=== PATIENT | female | born 1955 | race Caucasian/White ===

== ENCOUNTER 2018-03-21 17:09 | Inpatient (IN) | payer OTHER, MEDICAID ==
[~2018-03-21] VITALS: Ht 162.6 cm; Wt 100.7 kg
[2018-03-21 17:09] VITALS: BP 152/69
[~2018-03-21 17:09] MED LIST: ACETAMINOPHEN-1 EAC1; ALBUTEROL2.5 MG/0.5 INH; AMBIEN 5 MG TABL5 M1 PO; AMLODIPINE BESY10 MG PO; ATIVAN1 MG PO; BENTYL 10 MG CA10 M1; BUPROPION HCL200 MG PO; GABAPENTIN 100100 MG; GLUCOTROL5 MG PO; IBUPROFEN 400400 M2; JANUVIA 50 MG T50 M1; JANUVIA 50 MG T50 MG PO; LASIX 20 MG TAB20 MG PO; LEVAQUIN 500 M500 M4 PO; LEVAQUIN 750 M750 MG PO; LIDODERM 5%1 PATC1 TRANSDERM; MAGOX 400400 MG PO; MUCINEX TA600 MG/TA2 PO; NEURONTIN 300300 M1 PO; NICOTINE TRANSD21 M1 TRANSDERM; NORCO 5-325 TA1 EACH PO; ONDANSETRON HCL4 M2 PO; OXYBUTYNIN 5 MG5 M2 PO; PLAVIX 75 MG TA75 M1 PO; POTASSIUM20 PO; PREDNISONE 10 M10 MG PO; PREDNISONE 20 M20 MG PO; PREDNISONE 5 MG5 M1 PO; PROAIR HFA8.5 GM INH; PROTONIX40 M1 PO; PROZAC20 MG PO; RANITIDINE HCL300 MG PO; SPIRIVA INH; SYMBICORT160 MCG/4. INH; SYNTHROID125 MCG PO; TIZANIDINE HCL4 MG PO; TOPAMAX 100 MG100 MG PO; TRAMADOL 50 MG50 MG PO; TRAZODONE HCL50 MG; VISTARIL 25 MG25 M1; ZANTAC 150MG T150 MG PO; ZOCOR20 MG PO
[2018-03-21] MEDS ORDERED: LISINOPRIL5 MG PO (17:27)
[2018-03-21] MEDS ORDERED: MAPAP500 MG PO (17:27)
[2018-03-21] MEDS ORDERED: LOPERAMIDE 2 MG2 M1 PO (17:27)
[2018-03-21] MEDS ORDERED: ACIDOPHILUS1 EAC4 PO ×2 (17:27→20:56)
[2018-03-21 17:51] LABS: ABSOLUTE BASOPHILS 0.1 thou/uL (0.0-0.2); ABSOLUTE EOSINOPHILS 0.2 thou/uL (0.0-0.7); ABSOLUTE LYMPHOCYTES 2.2 thou/uL (0.8-5.3); ABSOLUTE MONOCYTES 0.7 thou/uL (0.0-1.2); ABSOLUTE NEUTROPHILS 3.1 thou/uL (1.6-8.1); BASOPHILS 1.1 %; EOSINOPHILS 3.3 %; HEMATOCRIT 45.5 % (37.0-47.0); HEMOGLOBIN 15.2 gm/dL (12.0-15.0); LYMPHOCYTES 35.6 %; MCH 29.8 pg (26.0-34.0); MCHC 33.4 g/dL (28.0-37.0); MCV 89.4 fL (80.0-100.0); MPV 7.7 fl. (7.2-11.1); NUCLEATED RBCS 0 /100WBC; PLATELET COUNT* 220 thou/uL (150-400); RBC 5.09 mil/uL (4.20-5.00); RDW-CV 14.8 % (10.5-14.5); WBC 6.3 thou/uL (4.0-11.0)
[2018-03-21 17:58] LABS: ANION GAP 8 mmol/L (7-16); BUN 16 mg/dL (7-18); CHLORIDE 106 mmol/L (98-107); CO2 27 mmol/L (21-32); CREATININE 1.1 mg/dL (0.6-1.3); GLUCOSE 127 mg/dL (70-99); POTASSIUM 4.2 mmol/L (3.5-5.1); SODIUM 141 mmol/L (136-145)
[2018-03-21 18:08] LABS: ALBUMIN 3.6 g/dL (3.4-5.0); ALKALINE PHOSPHATASE 99 U/L (46-116); LIPASE 163 U/L (73-393); MAGNESIUM 1.8 mg/dL (1.8-2.4); NT-PRO BRAIN NAT PEPTIDE 114 pg/mL (<300); SGOT 20 U/L (15-37); SGPT 20 U/L (30-65); TOTAL BILIRUBIN 0.2 mg/dL (<0.1-1.0); TOTAL PROTEIN 7.4 g/dL (6.4-8.2); TROPONIN-I LEVEL <0.06 ng/mL (<0.06)
[2018-03-21 18:16] LABS: APTT 24.2 Seconds (25.0-31.3)
[2018-03-21 18:16] LABS: PCO2 VENOUS 42.8 mmHg (41.0-51.0)
[2018-03-21 18:17] LABS: BE -3.1 mmol/L (-2 to +3); HCO3 22.6 mmol/L (22.0-26.0); PO2 VENOUS < 39.9 mmHg (35.0-45.0)
--- NOTE | 2018-03-21 19:23 | NUR ---
REPORT RECIEVED FROM KENDELL, WAITING FOR PATIENT'S ARRIVAL TO FLOOR.
[2018-03-21 19:40] VITALS: BP 149/65
[2018-03-21 19:50] VITALS: BP 133/76
[2018-03-21] MEDS ORDERED: MAPAP500 M1 PO (21:00)
[2018-03-21] MEDS ORDERED: JANUVIA100 MG PO ×2 (21:08→21:09)
[2018-03-22 00:23] VITALS: BP 151/97
[2018-03-22 04:40] VITALS: BP 112/65
--- NOTE | 2018-03-22 07:40 | NUR ---
PATIETN RESTED IN BED, NO ACUTE CHANGES. PATIENT REFUSED SKIN ASSESS OF BUTTOCK BY MALE. PATIENT DID NOT SHOW SIGNS OF DISTRESS. PATIENT IS NOT SOA OF NOW. PATIENT HAD FREQUENT URINE. FALL PRECAUTIONS IN PLACE, CALL LIGHT WITH IN REACH, HOURLY ROUNDING OBSERVED, BED ALARM ON. DOCTOR NOTIFIED OF PATIENT'S BLOOD SUGAR. DOCTOR NOTIFIED OF PATIENT'S REQUEST FOR NIGHT MEDS, LORAZPAM, PAIN MEDS, SEE ORDERS.
[2018-03-22 09:00] VITALS: BP 158/86
--- NOTE | 2018-03-22 10:18 | EKG ---
[place] [address] ELECTROCARDIOGRAM REPORT Name: CHONG MILNER Room: [address] ADM IN [facility].#: [id number] Admission: 03/21/18 Attend Phys: Shahzad Toure Discharge: Date of : 55 Report #: [id number] THIS REPORT FOR: //name// [facility] ED Test Date: 2018-03-21 Test Time: 17:16:16 Pat Name: CHONG MILNER Department: Room: [facility] Gender: F Entertainment & Media Correspondent: Opal ESCAMILLA : 1955 Requested By: Lei Parada Order Number: [id number] MD: Robert Leung Measurements Intervals [place] Rate: 91 P: 54 NV: 171 QRS: -14 QRSD: 93 T: 66 QT: 370 QTc: 456 Interpretive Statements Sinus rhythm poor r wave progression Low voltage, precordial leads Compared to ECG 03/03/2017 04:02:30 no change Electronically Signed On 03-22-2018 10:18:[address] [employer] LAW CLERK by Robert Leung [email or web address] <ELECTRONICALLY SIGNED> By: Robert Leung MD, [facility] 03/22/18 1018 1716 1716 Robert Leung MD, [facility] /EPI
[2018-03-22 12:00] VITALS: BP 147/84
--- NOTE | 2018-03-22 12:49 | 2DMMODE ---
[place] [address] 2 D/M-MODE ECHOCARDIOGRAM Name: ANNIACHONG L Room: [address] IN [facility]#: [id number] Admission: 03/21/18 Attend Phys: Emmanuel Webb Discharge: Date of : 55 Date of Service: 03/22/18 1249 Report #: [id number] THIS REPORT FOR: //name// APPROVED REPORT Study performed: 03/22/2018 10:38:35 EXAM: Comprehensive 2D, Doppler, and color-flow Echocardiogram Patient Location: In-Patient Room #: [facility] Status: routine BSA: 2.03 HR: 102 bpm BP: 158/86 mmHg Rhythm: NSR Other Information Study Quality: Adequate Indications Dyspnea 2D Dimensions IVSd: 13.11 (7-11mm) LVOT Diam: 19.12 (18-24mm) LVDd: 41.11 mm PWd: 13.02 (7-11mm) Ascending Ao: 30.19 (22-36mm) LVDs: 22.84 (25-40mm) Aortic Root: 29.24 mm Volumes Left Atrial Volume (Systole) LA ESV Index: 27.00 mL/m2 Aortic Valve AoV Peak Norberto.: 1.66 m/s AO Peak Gr.: 11.05 mmHg LVOT Max P.19 mmHg AO Mean Gr.: 6.75 mmHg LVOT Mean P.76 mmHg LVOT Max V: 1.52 m/s AO V2 VTI: 30.89 cm LVOT Mean V: 1.01 m/s SHELLY (VTI): 2.79 cm2 LVOT V1 VTI: 30.03 cm Mitral Valve MV Mean Gr.: 5.77 [place] [address] 2 D/M-MODE ECHOCARDIOGRAM Name: CHONG MILNER Room: [address] IN .R.#: [id number] Admission: 03/21/18 Attend Phys: Emmanuel Webb Discharge: Date of : 55 Date of Service: 03/22/18 1249 Report #: [id number] Lateral E' Norberto.: 0.12 m/s Pulmonary Valve PV Peak Norberto.: 1.13 m/s PV Peak Gr.: 5.11 mmHg Left Ventricle The left ventricle is normal size. There is normal LV segmental wall motion. Mild concentric left ventricular hypertrophy. Left ventricular systolic function is normal. The left ventricular ejection fraction is within the normal range. LVEF is 60-65%. The left ventricular diastolic function is normal. Right Ventricle The right ventricle is normal size. The right ventricular systolic function is normal. Atria The left atrium size is normal. The right atrium size is normal. Aortic Valve The aortic valve is normal in structure. No aortic regurgitation is present. There is no aortic valvular stenosis. Mitral Valve Moderate mitral annular calcification. There is no mitral valve regurgitation noted. No evidence of mitral valve stenosis. Tricuspid Valve The tricuspid valve is normal in structure. There is no tricuspid valve regurgitation noted. Pulmonic Valve The pulmonary valve is normal in structure. There is no pulmonic valvular regurgitation. Great Vessels The aortic root is normal in size. IVC is normal in size and collapses >50% with inspiration. Pericardium There is no pericardial effusion. <Conclusion> [place] [address] 2 D/M-MODE ECHOCARDIOGRAM Name: CHONG MILNER Room: [address] IN .R.#: [id number] Admission: 03/21/18 Attend Phys: Emmanuel Webb Discharge: Date of : 55 Date of Service: 03/22/18 1249 Report #: [id number] Mild concentric left ventricular hypertrophy. LVEF is 60-65%. <ELECTRONICALLY SIGNED> By: Robert Leung MD, [facility] 03/22/18 1249 1249 1249 Robert Leung MD, [facility] /INF
--- NOTE | 2018-03-22 12:52 | NUR ---
Pt was sound asleep when CM went to assess, will f/u later
--- NOTE | 2018-03-22 15:37 | NUR ---
Pt is A&O. Resides at home alone. Pt has CJ caregiver, through [facility], on Tuesdays, Wednesdays and for 4 hrs/day. Caregiver completes cleaning, prepares lunch, runs errands and provides stand by assist when Pt exits the shower, as needed. Pt has a RN through [facility] that comes once/week to set up Pt's medications. Pt reports having no family support, but states that she has 2 friends that are available to assist as needed. Pt has a walker, RW and home o2 through [employer]. Pt wants to see if she qualifies for a new RW, stated that her current one is not working anymore. Pt states that she does not have a bed and stated that she normally sleeps on her sofa, Pt questioned if she would qualify for a hospital bed. CM explained the necessary criteria that would need to be documented, updated Dr. Bill of skilled at [facility] and [facility]. Pt was denied a trilogy after a hospital stay in 03/2017. CM discussed disposition, Pt hopes to be able to return home at hi. Therapies to be ordered. Cm to try and find out when Pt received her RW, to determine if she is eligible for a new one. Following.
[2018-03-22 16:00] VITALS: BP 122/76
--- NOTE | 2018-03-22 18:26 | NUR ---
ASSUMED PT CARE AT 0700 PT IS ALERT AND ORIENTED X 4 PT C.O PAIN PT GIVEN PAIN MEDS WHICH HELPED, PT DENIES SOA ON 2L/NC, PT IS UP WITH SBA PT IS A FALL RISK BED ALARM IS ON, PT CALLS OUT APPROPRIATELY, PT IS ST ON THE MONITOR, PT IS PROGRESSING TOWARDS GOALS, PT HOME MEDS SENT TO PHARMACY BY PREVIOUS NURSE, WILL CONTINUE TO MONITOR
[2018-03-22 19:50] VITALS: BP 152/89
[2018-03-23] VITALS: BP 168/90
--- NOTE | 2018-03-23 02:18 | NUR ---
RECIEVED REPORT AND ASSUMED CARE AT 1900. DOOR OPENER IN PLACE. VITAL SIGNS STABLE. STANDBY ASSIST X 1 TO COMMODE, BED AND CHAIR. PT HAS KNEE PAIN AND LEFT HIP PAIN AND PAIN MEDS GIVEN ORDERED. ASSESSMENT COMPLETED AND DISCUSSED PLAN OF CARE, PT UNDERSTANDS. BED LOCKED AND CALL LIGHT WITHIN REACH. FALL PRECAUTIONS IN PLACE. HOURLY ROUNDING DONE AND ALL NEEDS MET. NURSING WILL CONTINUE TO MONITOR.
[2018-03-23 04:00] VITALS: BP 114/63
[2018-03-23 08:30] VITALS: BP 159/94
[2018-03-23 11:37] VITALS: BP 113/77
[2018-03-23 16:06] VITALS: BP 113/65
--- NOTE | 2018-03-23 16:39 | NUR ---
ASSUMED PT CARE AT 0700 PT IS ALERT AND ORIENTED X 4 PT DENIES PAIN OR SOA ON 2L/NC, PT IS UP WITH SBA PT IS A FALL RISK BED ALARM IS ON, PT IS ST ON THE MONITOR, PT IS PROGRESSING TOWARDS GOALS, PT AROUND 1630 C/O SOA WHEN AMBULATING CHECKED O2 SAT AND INCRESAED OXYGEN TO 3L/NC PT O2 SAT IS ABOVE 90, PT IS ANXIOUS GAVE ANXIETY MEDS THIS AM PT IS DROWSY AND HAS SLEPT SOME THROUGH OUT SHIFT PHYSICAL THERAPY EVAULUATING PT WILL CONTINUE TO MONITOR
[2018-03-23 19:45] VITALS: BP 110/57
[2018-03-24 00:12] VITALS: BP 153/80
[2018-03-24 05:01] LABS: ABSOLUTE BASOPHILS 0.1 thou/uL (0.0-0.2); ABSOLUTE EOSINOPHILS 0.1 thou/uL (0.0-0.7); ABSOLUTE LYMPHOCYTES 2.4 thou/uL (0.8-5.3); ABSOLUTE NEUTROPHILS 6.2 thou/uL (1.6-8.1); BASOPHILS 0.8 %; EOSINOPHILS 0.6 %; HEMATOCRIT 45.3 % (37.0-47.0); HEMOGLOBIN 14.9 gm/dL (12.0-15.0); LYMPHOCYTES 24.7 %; MCHC 32.9 g/dL (28.0-37.0); MCV 91.3 fL (80.0-100.0); MONOCYTES 10.2 %; MPV 8.1 fl. (7.2-11.1); NUCLEATED RBCS 0 /100WBC; POLYS 63.7 %; RBC 4.96 mil/uL (4.20-5.00); RDW-CV 14.9 % (10.5-14.5); WBC 9.7 thou/uL (4.0-11.0)
[2018-03-24 05:08] VITALS: BP 153/84
[2018-03-24 05:11] LABS: PLATELET COUNT* 143 thou/uL (150-400)
--- NOTE | 2018-03-24 06:22 | NUR ---
PT ALERT ORIENTED. INITALLY PT GETTING UP WITHOUT ASSIST. PT UNSTEADY AND TOLD TO CALL FOR HELP. BED ALARM ON. CO PAIN IN KNEE. ICY HOT ORDERED AND PLACED ON KNEE. TELEMETRY SHOWS SR. O2 AT 3 LITERS NC. HS ACCUCHECK 196 INSULIN GIVEN.
[2018-03-24 07:55] VITALS: BP 119/66
[2018-03-24 09:51] LABS: CALCIUM 9.3 mg/dL (8.5-10.1); CREATININE 0.9 mg/dL (0.6-1.3); POTASSIUM 4.1 mmol/L (3.5-5.1)
--- NOTE | 2018-03-24 10:34 | NUR ---
RECEIVED REPORT FROM JONAH AND ASSUMED CARE PT @ 7314.PT IS A/O X4 BUT DROWSY.VSS.TRACING SR ON THE MONITOR.IV RIGHT FOREARM REMOVED DUE TO INFILTRATION.PT IS CALM AND COOPERATIVE WITH C/O PAIN IN KNEES AND THIGHS-MEDICATIONS GIVEN.PT IS UP WITH ASSIST OF ONE TO BSC.PT LEFT RESTING IN BED WITH CALL LIGHT AND FALL PRECAUTIONS IN PLACE.WILL CONTINUE TO MONITOR.
[2018-03-24 12:04] VITALS: BP 144/75
[2018-03-24] MEDS ORDERED: LEVAQUIN 750 M750 MG PO (13:42)
[2018-03-24] MEDS ORDERED: PREDNISONE 20 M20 MG PO (13:44)
[2018-03-24] MEDS ORDERED: LOPERAMIDE 2 MG2 M1 PO (13:44)
--- NOTE | 2018-03-24 14:04 | NUR ---
EQUIPMENT OILER SPOKE TO THE PATIENT TO DISCUSS DISCHARGE PLANNING NEEDS AND HH AT D/C. PATIENT INFORMS THAT SHE HAS CAREGIVERS THRU [facility] AND INFORMS THAT SHE WOULD LIKE THE HH SETUP WITH [facility]. D/C FLUE TILE PRESS OPERATOR SPOKE TO INTAKE WITH [facility] TO INFROM OF THE REFERRAL AND FAXED THE PATIENT'S FACESHEET, H&P, AND D/C ORDERS. [facility] WILL CONTACT THE PATIENT TO ARRANGE A TIME TO VISIT. CM WILL REMAIN AVAILABLE TO ASSIST AND FOLLOW NEEDED
[2018-03-24 14:28] VITALS: BP 144/75
[2018-03-24 14:30] VITALS: BP 144/75
--- NOTE | 2018-03-24 15:00 | NUR ---
PT OK TO D/C.PAPERWORK COMPLETED AND GIVEN TO PT.SCRIPTS GIVEN WITH EDUCATION.IV REMOVED EARLIER IN THE SHIFT.HEART MONITOR REMOVED AND RETURNED TO NURSING STATION.CAB VOUCHER SET UP BY CASE MANAGEMENT.ALL PERSONAL BELONGINGS PACKED AND TAKEN WITH PT.PT WHEELED OUT BY NURSING STAFF TO CAB BY NURSING STAFF.
== END 2018-03-24 18:21 | disposition home or self-care (01) | DRG 871 ==
LOC: M.ERS 17:09 → M.2W 18:03 → M.TBA-ER 18:03 → M.2W 20:09
PROVIDERS: Family Medicine; ADMIT Internal Medicine
DX: A41.9 Sepsis, unspecified organism (principal); I50.33 Acute on chronic diastolic (congestive) heart failure; J96.21 Acute and chronic respiratory failure with hypoxia; J44.1 Chronic obstructive pulmonary disease with (acute) exacerbation; I13.0 Hypertensive heart and chronic kidney disease with heart failure and stage 1 through stage 4 chronic kidney disease, or unspecified chronic kidney disease; F17.210 Nicotine dependence, cigarettes, uncomplicated; N18.3 Chronic kidney disease, stage 3 (moderate); E11.22 Type 2 diabetes mellitus with diabetic chronic kidney disease; J06.9 Acute upper respiratory infection, unspecified; E78.00 Pure hypercholesterolemia, unspecified; J45.909 Unspecified asthma, uncomplicated; F31.9 Bipolar disorder, unspecified; Z88.8 Allergy status to other drugs, medicaments and biological substances; Z90.49 Acquired absence of other specified parts of digestive tract; Z90.710 Acquired absence of both cervix and uterus; Z88.1 Allergy status to other antibiotic agents

== ENCOUNTER 2018-04-05 14:02 | Inpatient (IN) | payer OTHER, MEDICAID ==
[~2018-04-05] VITALS: Ht 152.4 cm; Wt 104.8 kg
--- NOTE | ~2018-04-05 | EKG ---
[place] [address] ELECTROCARDIOGRAM REPORT Name: CHONG MILNER Room: [address] IN [facility]#: [id number] Admission: 04/05/18 Attend Phys: Jm Webster MD Discharge: 04/20/18 Date of : 55 Report #: [id number] THIS REPORT FOR: //name// [facility] ED Test Date: 2018-04-21 Test Time: 17:46:56 Pat Name: CHONG MILNER Department: Room: [facility] Gender: F Fusing Machine Feeder: [place] : 1955 Requested By: Micky Escobar Order Number: [id number] MD: Measurements Intervals [place] Rate: 83 P: 49 OK: 161 QRS: 18 QRSD: 92 T: 58 QT: 371 QTc: 436 Interpretive Statements Sinus rhythm Probable left atrial enlargement Compared to ECG 04/12/2018 12:52:33 Poor R-wave progression no longer present Early repolarization no longer present [email or web address] By: 1746 1746 Epiphany Ep[facility]any, /EPI
[~2018-04-05 14:02] MED LIST changes: +ACIDOPHILUS1 EAC4 PO; +JANUVIA100 MG PO; +LISINOPRIL5 MG PO; +LOPERAMIDE 2 MG2 M1 PO; +MAPAP500 M1 PO; +MAPAP500 MG PO
[2018-04-05] MEDS ORDERED: ATIVAN1 MG PO (14:06)
[2018-04-05 14:09] VITALS: BP 136/60
[2018-04-05 14:30] LABS: ABSOLUTE BASOPHILS 0.1 thou/uL (0.0-0.2); ABSOLUTE EOSINOPHILS 0.1 thou/uL (0.0-0.7); ABSOLUTE LYMPHOCYTES 1.3 thou/uL (0.8-5.3); ABSOLUTE MONOCYTES 0.6 thou/uL (0.0-1.2); ABSOLUTE NEUTROPHILS 4.8 thou/uL (1.6-8.1); BASOPHILS 0.8 %; EOSINOPHILS 1.4 %; HEMATOCRIT 43.5 % (37.0-47.0); HEMOGLOBIN 14.8 gm/dL (12.0-15.0); LYMPHOCYTES 18.5 %; MCHC 33.9 g/dL (28.0-37.0); MCV 88.4 fL (80.0-100.0); MONOCYTES 8.6 %; MPV 7.4 fl. (7.2-11.1); NUCLEATED RBCS 0 /100WBC; PLATELET COUNT* 231 thou/uL (150-400); POLYS 70.7 %; RBC 4.92 mil/uL (4.20-5.00); RDW-CV 14.7 % (10.5-14.5); WBC 6.8 thou/uL (4.0-11.0)
[2018-04-05 14:39] LABS: ANION GAP 9 mmol/L (7-16); BUN 12 mg/dL (7-18); CALCIUM 8.9 mg/dL (8.5-10.1); CHLORIDE 104 mmol/L (98-107); CO2 25 mmol/L (21-32); CREATININE 0.9 mg/dL (0.6-1.3); GLUCOSE 127 mg/dL (70-99); SODIUM 138 mmol/L (136-145)
[2018-04-05 14:47] LABS: ALBUMIN 3.4 g/dL (3.4-5.0); ALKALINE PHOSPHATASE 100 U/L (46-116); LIPASE 131 U/L (73-393); MAGNESIUM 1.9 mg/dL (1.8-2.4); NT-PRO BRAIN NAT PEPTIDE 116 pg/mL (<300); SGOT 14 U/L (15-37); SGPT 17 U/L (30-65); TOTAL BILIRUBIN 0.2 mg/dL (<0.1-1.0); TOTAL PROTEIN 7.1 g/dL (6.4-8.2); TROPONIN-I LEVEL <0.06 ng/mL (<0.06)
--- NOTE | 2018-04-05 16:52 | EKG ---
[place] [address] ELECTROCARDIOGRAM REPORT Name: CHONG MILNER Room: [facility]#: [id number] Admission: 04/05/18 Attend Phys: Discharge: Date of : 55 Report #: [id number] THIS REPORT FOR: //name// [facility] ED Test Date: 2018-04-05 Test Time: 14:55:49 Pat Name: CHONG MILNER Department: Room: Gender: F Doubler Helper: LAURA : 1955 Requested By: Ehsan Pisano Order Number: [id number] MD: Gael Lozano Measurements Intervals [place] Rate: 104 P: 51 NH: 186 QRS: -14 QRSD: 91 T: 27 QT: 349 QTc: 459 Interpretive Statements Sinus tachycardia Inferior infarct, old Anterior infarct, old Compared to ECG 03/21/2018 17:16:16 Myocardial infarct finding now present Sinus rhythm no longer present Poor R-wave progression no longer present Electronically Signed On 04-05-2018 16:51:58 COMPUTER SERVICE TECHNICIAN by Gael Lozano [email or web address] <ELECTRONICALLY SIGNED> By: Gael Lozano MD, [facility] 04/05/18 1651 1455 1455 Gael Lozano MD, [facility] /EPI
[2018-04-05 19:32] LABS: BE -3.9 mmol/L (-2 to +3); HCO3 22.1 mmol/L (22.0-26.0); PCO2 43.7 mmHg (35.0-45.0); pH 7.322 (7.340-7.450)
[2018-04-05 19:34] LABS: PO2 53.9 mmHg (75.0-100.0)
[2018-04-05 20:20] VITALS: BP 120/81
[2018-04-05 21:00] VITALS: BP 119/64
[2018-04-06] VITALS: BP 104/61
--- NOTE | 2018-04-06 03:02 | NUR ---
PT ARRIVED FROM ER AROUND 2029. ASSESSMENT COMPLETED CHARTED. ABLE TO MAKE NEEDS KNOWN. C/O LEG AND BACK PAIN, GAVE PRN TYLENOL. UP WITH 1 ASSIST TO BSC. PT O2 DROPPED TO 83% WHILE COUGHING AND ON 6LNC, PUT PT ON REBREATHER AT 15L AND PT O2 HAS BEEN STAYING AROUND 95-96%. PT HAS BEEN NEEDY, BUT PLEASENT TO STAFF. PAPERWORK SIGNED. WILL CONTINUE TO MONITOR.
[2018-04-06 04:00] VITALS: BP 117/56
--- NOTE | 2018-04-06 07:30 | NUR ---
ASSUMED CARE OF PT ASSESSED AND DOCUMENTED. PT IS ON CARDIAC MONITER TRACING ST PVC'S HR 107. PT IS A&O WITH NO C/O PAIN. VSS WNL. PT IS AFEBRILE. PT IS ON HIGH FLOW NC AT 10L. LUNGS ARE COARSE. BED IS IN LOW POSTION CALL LIGHT IS IN REACH. WM.
[2018-04-06 08:00] VITALS: BP 115/61
--- NOTE | 2018-04-06 10:31 | EKG ---
[place] [address] ELECTROCARDIOGRAM REPORT Name: CHONG MILNER Room: [address] ADM IN [facility].#: [id number] Admission: 04/05/18 Attend Phys: Jm Webster MD Discharge: Date of : 55 Report #: [id number] THIS REPORT FOR: //name// [facility] ED Test Date: 2018-04-05 Test Time: 16:16:57 Pat Name: CHONG MILNER Department: Room: [facility] Gender: F Netbackup Engineer: LAURA : 1955 Requested By: Ehsan Pisano Order Number: [id number] MD: Robert Leung Measurements Intervals [place] Rate: 106 P: 50 GA: 173 QRS: -11 QRSD: 86 T: 28 QT: 342 QTc: 455 Interpretive Statements Sinus tachycardia Anterior infarct, old Compared to ECG 04/05/2018 14:55:49 No significant changes Electronically Signed On 04-06-2018 10:31:24 DIVISIONAL HUMAN RESOURCES DIRECTOR by Robert Leung [email or web address] <ELECTRONICALLY SIGNED> By: Robert Leung MD, [facility] 04/06/18 1031 15 15 Robert Leung MD, [facility] /EPI
--- NOTE | 2018-04-06 10:45 | NUR ---
Nutrition: Pt with h/o DM, CHF, CKD III, HTN, COPD. Wt: 230# last year, currently 244#. On Heart Healthy diet with a CHO count. Albumin 3.4, BG 265-127. Admitted with PNA. On 6LNC. Consult received for poor po intake. Please encourage good meal intake. RD will order Glucerna for added nutirtion. Mild risk at this time.
[2018-04-06 11:54] VITALS: BP 143/89
--- NOTE | 2018-04-06 13:22 | NUR ---
CALLED PHARMACY SPOKE WITH MYRNA HE IS PUSHING BACK [facility] TROUGH GO AHEAD AND HANG 1400 VANCO.
--- NOTE | 2018-04-06 14:29 | NUR ---
Pt is A&O. Known to this CM from previous hospital stay. Pt resides at home alone, has supportive friends. Pt has a walker, RW and home o2 through [facility]. Current with [facility]. Pt has inhome CGs through [facility] that assist with errands and cleaning. Pt's goal is to return home at pr. Following.
[2018-04-06 16:00] VITALS: BP 112/64
--- NOTE | 2018-04-06 18:08 | NUR ---
PT HAS RESTED AND WATCHED TV THIS SHIFT. SHE IS FORGETFUL AND USES CALL LIGHT EXCESSIVELY. PT HAS HAD NO S OR SX OF ADVERSE REACTION TO ABT. HER LUNGS REMAIN COARSE. SHE IS NOT COMPLIANT WITH LEAVING HER HI FLOW NC ON. SHE IS INCONTINENT AT TIMES. EDUCATION GIVEN ON DEMAND. HOURLY ROUNDING COMPLETE.
[2018-04-06 20:00] VITALS: BP 121/52
[2018-04-07] VITALS: BP 115/57
--- NOTE | 2018-04-07 02:59 | NUR ---
ASSUMED PT CARE AT 1930. ASSESSMENT COMPLETED CHARTED. PT ON O2 TO KEEP SATS ABOVE 90, C/O PAIN IN LEGS AND HEADACHE. UP WITH STANDBY ASSIST, PT RESTING IN BED AT THIS TIME. ABLE TO MAKE NEEDS KNOWN. CALL LIGHT WITHIN REACH. WILL CONTINUE TO MONITOR.
[2018-04-07 04:00] VITALS: BP 135/63
[2018-04-07 05:20] LABS: HEMOGLOBIN 12.9 gm/dL (12.0-15.0); MCH 29.8 pg (26.0-34.0); MCV 90.3 fL (80.0-100.0); MPV 7.5 fl. (7.2-11.1); RBC 4.32 mil/uL (4.20-5.00); RDW-CV 14.9 % (10.5-14.5)
[2018-04-07 05:33] LABS: CALCIUM 9.1 mg/dL (8.5-10.1); CREATININE 0.9 mg/dL (0.6-1.3); MAGNESIUM 1.7 mg/dL (1.8-2.4); POTASSIUM 4.9 mmol/L (3.5-5.1)
[2018-04-07 12:00] VITALS: BP 107/47
[2018-04-07 16:00] VITALS: BP 107/62
--- NOTE | 2018-04-07 17:52 | NUR ---
PER RT DR PARKER STATES THAT PT IS NOT A CO2 RETAINER AND TO USE WHATEVER OXYGEN IS NEEDED TO KEEP PT SAT UP. PT ON NC AND INTERMITTENTLY NRB WELL
[2018-04-07 20:00] VITALS: BP 134/79
[2018-04-08] VITALS: BP 121/75
[2018-04-08 04:00] VITALS: BP 137/70
--- NOTE | 2018-04-08 05:14 | NUR ---
assumed care of pt at 1900 pt alert and oriented x4 vs and assessment stable pts o2 sat 92-95 on 8l nc and pt continues to run st on the monitor. pt did have desats when she removed her o2. reminded pt that she needed to keep o2 on. pt up to void numerous times overnight. pt had tramadol x 1 for pain with good effect. no further complaints. will continue plan of care.
[2018-04-08 05:55] LABS: BE 2.4 mmol/L (-2 to +3); PO2 77.1 mmHg (75.0-100.0); pH 7.358 (7.340-7.450)
[2018-04-08 05:58] LABS: PCO2 52.8 mmHg (35.0-45.0)
[2018-04-08 07:45] VITALS: BP 144/77
[2018-04-08 12:25] VITALS: BP 127/72
[2018-04-08 16:12] VITALS: BP 109/65
--- NOTE | 2018-04-08 18:34 | NUR ---
PT NOT PROGRESSING TOWARD GOALS. PT DESAT WITH ACTIVITY. CURRENTLY ON NON-REBREATHER. O2 SAT CURRENTLY AT 94%. PT HAS A REBOLLAR TO ASSIST WITH I&O'S AND IMMOBILIZATION. PT DC'D IV. NARA ATTEMPTING TO PLACE A NEW IV. WHEN PT IS OFF OF NON-REBREATHER, SHE IS ON HIGHFLO NC AT 8L
[2018-04-08 20:00] VITALS: BP 115/60
[2018-04-09] VITALS (7 sets, daily range): BP systolic 95–146; BP diastolic 38–82
--- NOTE | 2018-04-09 07:06 | NUR ---
ASSUMED PT CARE AT 1930. ASSESSMENT COMPLETED CHARTED. PT ON BEDREST WITH KETURAH IN PLACE. C/O LEG PAIN AND GAVE PRN PAIN MEDS PER P.O. O2 ON AT 10L. COUGHING STILL MAKING PT DESAT. PT RESTING IN BED AT THIS TIME. WILL CONTINUE TO MONITOR.
--- NOTE | 2018-04-09 07:43 | CON ---
[address] [address] CONSULTATION Name: CHONG MILNER Room: [address] IN .R.#: [id number] Admission: 04/05/18 Attend Phys: Jm Webster MD Discharge: Date of : 55 Report #: [id number] THIS REPORT FOR: //name// CC: Jm Ford DATE OF SERVICE: 04/06/2018 LOCATION: She is located in room 207. ATTENDING PHYSICIAN: Dr. Webster. PRIMARY CARE PHYSICIAN: Sheryl Ford DO. 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 INDICATION FOR CONSULTATION: COPD, hypoxemia, possible pulmonary emboli. HISTORY OF PRESENT ILLNESS: The patient is a 62-year-old female, prior smoker, with severe COPD. She has been oxygen dependent, not steroid dependent for COPD. She has a home health physician come by and every 3-6 months comes to her home and treats her with some antibiotics and maybe some breathing treatments. She has not been on any prednisone tapers for the last couple of months. She was seen in the hospital. She was hypoxic on 100% nonrebreather when she had been on 2 liters at home. Had a CT angio of the chest that showed pulmonary emboli in the left lower lobe branches and couple in the left upper lobe branches. Venous Dopplers ended up being negative. The patient was placed on Xarelto 15 mg b.i.d., seems to be breathing better. She was on 100% nonrebreather. She is now down to 7 liters. She was on 2 liters at home. She is chronically short of breath when she walks across the room. PAST MEDICAL HISTORY: She has a history of COPD, possibly mixed with some interstitial lung disease. She has had some old left rib fractures and multiple contusions, pulmonary embolism. ALLERGIES: SHE HAS ALLERGIES OR INTOLERANCES TO AMOXICILLIN, WHICH GIVES HER RASH AND ALSO CAMPHOR, WHICH ALSO GIVES HER A RASH. OUTPATIENT MEDICATIONS: She was on a prednisone taper again a couple of weeks ago and then, she was on levofloxacin 750 mg daily. It appears she was on that from 03/24/2018 to 03/31/2018. Other outpatient medications included DuoNeb nebulizers 4 times a day, lisinopril 5 mg daily, clopidogrel bisulfate, Plavix 75 mg daily, fluoxetine, Prozac 20 mg daily, Topamax 100 mg daily, levothyroxine 125 mcg daily, Protonix 40 mg b.i.d., lorazepam 1 mg p.r.n., topiramate, Lasix was 20 mg daily. In the hospital, she is on IV Solu-Medrol and she is on Xarelto 15 mg b.i.d., [place] [address] CONSULTATION Name: CHONG MILNER Room: [address] IN [facility].#: [id number] Admission: 04/05/18 Attend Phys: Jm Webster MD Discharge: Date of : 55 Report #: [id number] PAST SURGICAL HISTORY: Includes a hysterectomy in the past, cholecystectomy, tonsillectomy, right knee arthroscopy. REVIEW OF SYSTEMS: Otherwise shows hyperlipidemia and some borderline schizophrenia and possibly some early chronic kidney disease. FAMILY HISTORY: Negative for premature cardiopulmonary disease. SOCIAL HISTORY: The patient lives at home by herself, current every day smoker about 1/2-1 pack a day, and she has a 77-[id number] history of smoking. Denies any alcohol or illicit drug use. PHYSICAL EXAMINATION: GENERAL: A 62-year-old female, in no acute distress. She is mildly dyspneic getting up and sitting up in the chair. VITAL SIGNS: Blood pressure was 108/64, heart rate is 96-100, respirations were 16-20 and she was afebrile at 36.8. She is 5 feet 2 inches tall, weight is 108 kilograms or 230 pounds, BMI is 46. HEENT: She has a crowded mouth. Mallampati score of 3-4. NECK: Supple, without nodes. She has thick redundant neck tissue. CHEST: Shows inspiratory and expiratory wheezes with prolonged expiratory phase. CARDIOVASCULAR: Regular rate and rhythm without murmur, gallop or rub. Heart rate is 104. ABDOMEN: Obese without masses or megaly. EXTREMITIES: Trace edema. No calf tenderness. No cyanosis, no clubbing. NEUROLOGIC: Intact. LABORATORY DATA: From 04/05/2018 shows hemoglobin 15, white count 6800, platelets are 231,000, normal differential. Sodium is 137, potassium is 4.9, BUN is 19, creatinine 0.9, glucose is 217. Magnesium is 1.7 and ABGs on 04/05/2018 on 3 liters showed a pO2 of 54, pH 7.32, pCO2 is 44, bicarbonate 22, sats 85%. Carboxyhemoglobin markedly elevated at 4.7%. Chest x-ray shows COPD, hyperinflation, lower lobe infiltrates, linear atelectasis. CT angio of the chest showed some left lower lobe clots, they were subsegmental. No masses or adenopathy is noted. ASSESSMENT: 1. Acute hypoxic respiratory failure related to cigarette use and carboxyhemoglobinemia, clinically improving. 2. Severe chronic obstructive pulmonary disease, oxygen dependent, may be becoming steroid dependent. 3. Subsegmental pulmonary emboli with no pulmonary artery hypertension or right heart strain, clinically on Xarelto therapy. 4. [place] [address] CONSULTATION Name: CHONG MILNER Room: [address] IN [facility].#: [id number] Admission: 04/05/18 Attend Phys: Jm Webster MD Discharge: Date of : 55 Report #: [id number] PLAN: Continue current therapy. We will see if we can wean her O2 from the 7 liters on down. Intermittently, she becomes hypoxic. She does get very anxious and she may need a sleep study and full PFTs at some point in time. She will probably need 6 months of therapy, then check a CT angio of the chest. Venous Dopplers just came back, which were negative for deep venous thrombosis. May need an echocardiogram at some point in time. We will see how she clinically does. She seems to be clinically improving. Again, also obviously encouraged the patient to discontinue smoking or she will from cigarette smoking related lung and/or heart disease. She states she will try and do this. This has been a 33 minute critical care consult. <ELECTRONICALLY SIGNED> By: Jermaine Christian MD 04/09/18 0743 1813 1855AMD michell Bravo
--- NOTE | 2018-04-09 10:02 | NUR ---
RECEIVED REPORT FROM ALEXANDRU AND ASSUMED CARE OF PT @ 9769.PT IS A/O X4 BUT FORGETFUL,VSS,TRACING ST ON THE MONITOR.PT REMAINS ON 10L O2 HIGH FLOW NC AND INTERMITTENT NON-REBREATHER USE.CONTINUOUS PULSE OXIMETRY SECURE IN PLACE.IV PATENT AND SALINE LOCKED. IV ANTIBIOTICS GIVEN.REBOLLAR SECURE AND PATENT.PT IS CALM AND COOPERATIVE WITH NO C/O PAIN AT TIME OF ASSESSMENT. PT LEFT RESTING IN BED WITH CALL LIGHT AND FALL PRECAUTIONS IN PLACE.WILL CONTINUE TO MONITOR.
--- NOTE | 2018-04-09 17:13 | NUR ---
VSS.CARDIAC MONITORING IN PLACE WITH NO CHANGES.PT REMAINS ON 10L O2 NC AND CONTINUOUS PULSE OX.NEW IV INSERTED IN LEFT FOREARM.IV PATENT AND SALINE LOCKED.IV ANTIBIOTICS GIVEN.PAIN MANAGED WELL WITH PO MEDICATIONS.PT HAS SLEPT MOST OF SHIFT.HOURLY ROUNDING COMPLETED FOR PT SAFETY.CALL LIGHT AND FALL PRECAUTIONS IN PLACE.Q2 HOUR POSITION CHANGE COMPLETED.WILL CONTINUE TO MONITOR FOR DURATION OF SHIFT.
[2018-04-10 04:00] VITALS: BP 124/87
--- NOTE | 2018-04-10 06:09 | NUR ---
ASSUMED PT CARE AT 1930. ASSESSMENT COMPLETED CHARTED. ABLE TO MAKE NEEDS KNOWN. BEDREST, Q2TURN, ON HFNC AT 10-12 L ALL NIGHT. C/O LEG PAIN AND GAVE PRN PAIN MEDS. PT STATES SHE IS LONELY AT TIMES AND WANTS ATTENTION. AND PT STATES SHE IS FEELING BETTER TODAY. WILL CONTINUE TO MONITOR.
[2018-04-10 07:45] VITALS: BP 125/71
--- NOTE | 2018-04-10 07:45 | NUR ---
RECEIVED REPORT FROM ALEXANDRU AND ASSUMED CARE OF PT @ 2346.PT IS A/O X4,VSS,TRACING SR-ST ON THE MONITOR.NEW IV INSERTED IN RIGHT WRIST-PATENT AND SALINE LOCKED.IV ANTIBIOTICS GIVEN.REBOLLAR SECURE AND PATENT.PT IS CALM AND COOPERATIVE WITH NO C/O PAIN AT TIME OF ASSESSMENT.PT LEFT RESTING IN BED WITH CALL LIGHT AND FALL PRECAUTIONS IN PLACE.WILL CONTINUE TO MONITOR.
[2018-04-10 12:09] VITALS: BP 136/77
[2018-04-10 15:30] VITALS: BP 110/68
--- NOTE | 2018-04-10 17:19 | NUR ---
VSS.CARDIAC MONITORING IN PLACE WITH NO CHANGES.PT O2 TITRATED DOWN TO 8L O2 HIGH FLOW NC.NO C/O PAIN.IV PATENT AND SALINE LOCKED.REBOLLAR SECURE AND PATENT.Q2 HOUR POSITION CHANGE COMPLETED.PT INFORMED OF PLAN OF CARE AND COMMUNICATES UNDERSTANDING.HOURLY ROUNDING COMPLETED FOR PT SAFETY.CALL LIGHT AND FALL PRECAUTIONS IN PLACE.WILL CONTINUE TO MONITOR FOR DURATION OF SHIFT.
[2018-04-10 20:30] VITALS: BP 124/75
[2018-04-11 00:44] VITALS: BP 126/77
[2018-04-11 04:00] VITALS: BP 114/75
--- NOTE | 2018-04-11 04:47 | NUR ---
PT CARE ASSUMED AT 1930. SAT MAINTAINED IN 8-10L HFNC. ALERT AND ORIENTED X4. BED IN LOW POSITION AND CALL LIGHT WITHIN REACH. PT C/O PAIN, MEDICATION GIVEN PER EMAR. PT SAID FEELING BETTER THAN YESTERDAY. HOURLY ROUNDING DONE FOR PT SAFETY.
[2018-04-11 07:55] VITALS: BP 126/81
[2018-04-11 10:15] LABS: BE 0.8 mmol/L (-2 to +3); HCO3 29.3 mmol/L (22.0-26.0); PO2 70.9 mmHg (75.0-100.0)
[2018-04-11 10:17] LABS: pH 7.282 (7.340-7.450)
[2018-04-11 10:18] LABS: PCO2 63.6 mmHg (35.0-45.0)
--- NOTE | 2018-04-11 10:39 | NUR ---
RECEIVED REPORT FROM RAMO AND ASSUMED CARE OF PT @ 8884.PT IS A/O X4,VSS,TRACING SR ON THE MONITOR.PT REMAINS ON 7.5L O2 HIGH FLOW NC.PT INTIATED ON BIPAP PER ORDERS AND ABG RESULTS.IV PATENT AND SALINE LOCKED.IV ANTIBIOTICS GIVEN.REBOLLAR SECURE AND PATENT.PT IS CALM AND COOPERATIVE WITH NO C/O PAIN AT TIME OF ASSESSMENT.PT LEFT RESTING IN BED WITH CALL LIGHT AND FALL PRECAUTIONS IN PLACE.WILL CONTINUE TO MONITOR.
[2018-04-11 12:00] VITALS: BP 93/45
[2018-04-11 16:00] VITALS: BP 105/61
--- NOTE | 2018-04-11 16:43 | NUR ---
VSS.CARDIAC MONITORING IN PLACE WITH NO CHANGES.PT REMAINS ON 5L O2 NC AND CONTINUOUS PULSE OX.PT REFUSES TO WEAR BIPAP.PAIN MANAGED WELL WITH MEDICATIONS.IV PATENT AND SALINE LOCKED.REBOLLAR SECURE AND PATENT.PT INFORMED OF PLAN OF CARE AND COMMUNICATES UNDERSTANDING.HOURLY ROUNDING COMPLETED FOR PT SAFETY.CALL LIGHT AND FALL PRECAUTIONS IN PLACE.WILL CONTINUE TO MONITOR FOR DURATION OF SHIFT.
[2018-04-11 20:40] VITALS: BP 94/58
[2018-04-12] VITALS: BP 105/55
[2018-04-12 04:00] VITALS: BP 99/54
--- NOTE | 2018-04-12 04:58 | NUR ---
PT CARE ASSUMED AT 1930. SAT MAINTAINED WITH 7L NC AND BIPAP AT NIGHT. PT EDUCATED ABOUT THE PLAN OF CARE, COMMUNICATES UNDERSTANDING BUT NEEDS REINFORCEMENT. PT C/O PAIN, MEDICATION GIVEN PER EMAR. DENIES SOB. CALL LIGHT WITHIN REACH AND BED IN LOW POSITION. HOURLY ROUNDING DONE FOR PT SAFETY.
[2018-04-12 08:00] VITALS: BP 107/56
--- NOTE | 2018-04-12 08:00 | NUR ---
RECEIVED REPORT FROM RAMO AND ASSUMED CARE OF PT @ 3500.PT IS A/O X4,VSS,TRACING SR ON THE MONITOR.ASSESSMENT CHARTED.NEW IV INSERTED IN LEFT CHEST BY AME-PACU NURSE.IV PATENT AND SALIN ELOCKED.IV ANTIBIOTICS GIVEN.PT REMAINS ON 6L O2 NC AND CONTINUOUS PULSE OX.PT IS CALM AND COOPERATIVE WITH NO C/O PAIN AT TIME OF ASSESSMENT.PT IS ORDERED BEDREST DUE TO RESPIRATORY STATUS.PT LEFT RESTING IN BED WITH CALL LIGHT AND FALL PRECAUTIONS IN PLACE.WILL CONTINUE TO MONITOR.
[2018-04-12 09:26] LABS: BE 0.8 mmol/L (-2 to +3); HCO3 28.3 mmol/L (22.0-26.0); PO2 71.6 mmHg (75.0-100.0); pH 7.312 (7.340-7.450)
[2018-04-12 09:31] LABS: PCO2 57.3 mmHg (35.0-45.0)
[2018-04-12 12:14] VITALS: BP 110/46
--- NOTE | 2018-04-12 15:42 | EKG ---
[place] [address] ELECTROCARDIOGRAM REPORT Name: CHONG MILNER Room: [address] ADM IN .R.#: [id number] Admission: 04/05/18 Attend Phys: Jm Webster MD Discharge: Date of : 55 Report #: [id number] THIS REPORT FOR: //name// [facility] Test Date: 2018-04-12 Test Time: 12:52:33 Pat Name: CHONG MILNER Department: Room: [address] Gender: F Mac Operator: [facility] : 1955 Requested By: Emmanuel Webb Order Number: [id number] MD: Robert Leung Measurements Intervals [place] Rate: 83 P: 42 PA: 145 QRS: 3 QRSD: 87 T: 32 QT: 346 QTc: 407 Interpretive Statements Sinus rhythm poor r wave progression early repolarization Probable left atrial enlargement Compared to ECG 04/05/2018 16:16:57 Sinus tachycardia no longer present Electronically Signed On 04-12-2018 15:42:42 LAYDOWN MACHINE OPERATOR by Robert Leung [email or web address] <ELECTRONICALLY SIGNED> By: Robert Leung MD, [facility] 04/12/18 1542 [id number] Robert Leung MD, [facility] /EPI
[2018-04-12 15:59] LABS: CREATININE 1.1 mg/dL (0.6-1.3); POTASSIUM 5.2 mmol/L (3.5-5.1)
[2018-04-12 16:31] VITALS: BP 97/45
--- NOTE | 2018-04-12 18:36 | NUR ---
VSS.CARDIAC MONITORING IN PLACE WITH NO CHANGES.PT REMAINS ON 6L O2 NC.IV PATENT AND SALINE LOCKED.IV ANTIBIOTICS GIVEN.REBOLLAR SECURE AND PATENT.PAIN MANAGED WELL WITH PO MEDICATIONS.PT WORKED WITH PHYSICAL THERAPY-AMBULATED IN [place] AND OT.PT INFORMED OF PLAN OF CARE AND COMMUNICATES UNDERSTANDING.HOURLY ROUNDING COMPELTED FOR PT SAFETY.CALL LIGHT AND FALL PRECAUTIONS IN PLACE.WILL CONTINUE TO MONITOR FOR DURATION OF SHIFT.
[2018-04-12 20:40] VITALS: BP 95/43
[2018-04-13] VITALS (9 sets, daily range): BP systolic 70–115; BP diastolic 26–64
--- NOTE | 2018-04-13 04:57 | NUR ---
PT CARE ASSUMED AT 1930. SAT MAINTAINED AT 5L NC AND BIPAP AT NIGHT. ALERT AND ORIENTED X4. PT C/O OF PAIN, MEDICATION GIVEN PER EMAR. CALL LIGHT WITHIN REACH AND BED IN LOW POSITION. DENIES SOB. HOURLY ROUNDING DONE FOR PT SAFETY. TRACING SR ON ETELE MONITOR.
[2018-04-13 05:58] LABS: CALCIUM 8.8 mg/dL (8.5-10.1); CREATININE 1.1 mg/dL (0.6-1.3); POTASSIUM 4.4 mmol/L (3.5-5.1)
--- NOTE | 2018-04-13 14:24 | NUR ---
PT. WOULD BENEFIT FROM A HOSPITAL BED AT HOME IN ORDER FOR PT. TO SLEEP WITH HEAD ELEVATED AND AID IN BREATHING. PT. CURRENTLY SLEEPS ON COUCH AT HOME. PT. WOULD BENEFIT FROM ADDITIONAL SKILLED PT/OT BEFORE RETURNING HOME HOWEVER IS ADAMENTLY REFUSING 'GOING ANYWHERE BUT HOME FROM HERE'. PT. IS ONLY ABLE TO TOLERATE MINIMAL EXERTION ON 10 LITERS OF O2 WITH SATS FLUCTUATING BETWEEN 88-90% ON 10 LITERS VIA NC. PT. REMAINS A FALL RISK AND SEVERELY DE-CONDITIONED. P.T. WILL CONTINUE TO WORK WITHIN PT.'S TOLERANCE TO PROGRESS MOBILITY AND SAFETY IN PREP FOR D/C WHILE PT. IS HOSPITALIZED.
[2018-04-14] VITALS (7 sets, daily range): BP systolic 90–107; BP diastolic 34–61
--- NOTE | 2018-04-14 05:04 | NUR ---
ASSUMED PT CARE AT 1930. NURSING ASSESSMENT COMPLETED AT START OF SHIFT. AT 1999, PT BP 70/26 ON RIGHT ARM AND 79/[address] BACON NOTIFIED, NEW ORDER RECEIVED FOR 500 ML NS BOLUS. PT BP INCREASED TO 100/46 AT 2141. PT C/O PAIN, PRN PAIN MEDICATION ADMINISTERED X1 THIS SHIFT. HOURLY ROUNDING COMPLETED, FALL PRECAUTIONS IN PLACE, PT COMPLIANT WITH BIPAP THIS SHIFT. CONTINUES ON 7L O2 VIA NC WHEN NOT ON BIPAP. PT TRACING SINUS RHYTHM ON INTENSIVE CARE ANAESTHETIST. CALL LIGHT REMAINS WITHIN REACH.
[2018-04-14 06:04] LABS: CALCIUM 8.5 mg/dL (8.5-10.1); POTASSIUM 4.4 mmol/L (3.5-5.1)
--- NOTE | 2018-04-14 13:15 | NUR ---
Nutrition follow up: Pt reported appetite only fair. Is drinking the Glucerna sent. Wt down from admit, pt has received lasix during stay and on low Na diet. Albumin WNL. Continues at mild nutrition risk. Rec continue POC and record % intake in chart. RD re-eval 04/19.
--- NOTE | 2018-04-14 15:50 | NUR ---
RIGHT UPPER ARM CEPHALIC VESSEL ACCESSED FOR SINGLE LUMEN POWERGLIDE MIDLINE. LINE ADVANCED OFF THE WIRE WITH NO RESISTANCE MET. GOOD BRISK BLOOD RETURN, FLUSHES FREELY. INSERTION SITE DRESSED, REPORT GIVEN TO TRAE WHELAN.
--- NOTE | 2018-04-14 18:36 | NUR ---
VSS, ASSUMED CARE IN THE AM, ASSESSMENT PERFORMED AND CHARTED, FALL PRECAUTIONS IN PLACE AND CALL LIGHT IN REACH, PT IS A&O4 AND ON 5L NC, SHE WEARS BIPAP PRN AND HS, PT IS UP WITH ONE TO BSC, HAS REBOLLAR IN PLACE AND IS DRAING, PT IS TRACING SR ON THE MONITOR, PT GOAL WAS TO WORK WITH PT/OT AND SIT UP IN CHAIR AND HAVE A BM, HOURLY ROUNDS COMPLETED AND GOALS MET.
[2018-04-15 04:00] VITALS: BP 118/39
--- NOTE | 2018-04-15 04:20 | NUR ---
ASSUMED PT CARE AT 1930. NURSING ASSESSMENT COMPLETED AT START OF SHIFT. SCHOOL PSYCHOLOGIST IN PLACE, TRACING SINUS RHYTHM/SINUS BRADICARDIA THIS SHIFT. HOURLY ROUNDING COMLETED. Q2H REPOSITIONNING COMPLETED, PT WORE BIPAP FOR APPROX 5 HRS THIS SHIFT. PRN PAIN MEDICATION ADMINISTERED, SEE EMAR FOR DOCUMENTATION. CALL LIGHT WITHIN REACH.
[2018-04-15 05:57] LABS: CALCIUM 9.1 mg/dL (8.5-10.1); CREATININE 0.9 mg/dL (0.6-1.3); POTASSIUM 5.6 mmol/L (3.5-5.1)
[2018-04-15 08:00] VITALS: BP 116/77
[2018-04-15 11:45] VITALS: BP 116/39
--- NOTE | 2018-04-15 18:24 | NUR ---
PT UP IN CHAIR MOST OF SHIFT. O2@4L NC. PT CALLS APPROPRIATELY FOR STAFF ASSIST FOR BSC. TOLERATING PO WELL. REBOLLAR CATH DRAINING CLEAR YELLOW URINE
[2018-04-15 20:00] VITALS: BP 109/78
--- NOTE | 2018-04-15 22:03 | NUR ---
ASSUMED PT CARE AT 1915. PT MED SURG STATUS. NURSING ASSESSMENT COMPLETED AT START OF SHIFT. HOURLY ROUNDING COMPLETED, FALL PRECAUTIONS IN PLACE, PRN PAIN MED ADMINISTERED. SEE EMAR FOR DOCUMENTATION. REPORT GIVEN TO CLEOPATRA JULIEN. PT TRANSFERED TO ROOM 110 AT 2345 VIA BED WITH BELONGINGS.
--- NOTE | 2018-04-15 23:20 | NUR ---
2240 PATIENT RECEIVED IN TRANSFER FROM [facility] BY BED IN STABLE CONDITION. PATIENT ORIENTED TO UNIT, ROOM AND BED. CALL LIGHT IN REACH. O2 ON ORDERED. RT NOTIFIED OF TRANSFER FOR PATIENT TO RECEIVE LAST RT TREATMENT OF THE DAY AND BIPAP TO BE APPLIED AT MIDNIGHT. CONTINUE TO MONITOR.
[2018-04-16 00:07] VITALS: BP 113/51
--- NOTE | 2018-04-16 01:18 | NUR ---
RECIEVED REPORT AND ASSUMED CARE OF PATIENT.
[2018-04-16 04:27] LABS: HEMATOCRIT 38.2 % (37.0-47.0); HEMOGLOBIN 12.7 gm/dL (12.0-15.0); MCH 29.6 pg (26.0-34.0); MCHC 33.2 g/dL (28.0-37.0); MCV 89.2 fL (80.0-100.0); MPV 8.7 fl. (7.2-11.1); NUCLEATED RBCS 0 /100WBC; PLATELET COUNT* 217 thou/uL (150-400); RBC 4.28 mil/uL (4.20-5.00); RDW-CV 14.1 % (10.5-14.5); WBC 9.5 thou/uL (4.0-11.0)
[2018-04-16 04:36] LABS: CALCIUM 9.2 mg/dL (8.5-10.1); CREATININE 1.1 mg/dL (0.6-1.3); POTASSIUM 5.3 mmol/L (3.5-5.1)
--- NOTE | 2018-04-16 05:47 | NUR ---
PT ON BIPAP UNTIL 0530. PT STATED SHE WAS AWAKE FOR THE DAY. PT PLACED BACK ON 4 LITERS NASAL CANULA. PT ON CONTINUOUS O2 SAT MONITOR. PT SAT 90-94% THROUGHOUT SHIFT. BLOOD PRESURE AND HEART RATE WITHIN NORMAL LIMITS. RESPIRRATIONS LABORED AT REST. PT HAS LOOSE COUGH, NO SPUTUM REPORTED.
[2018-04-16 07:16] LABS: ABSOLUTE LYMPHOCYTES 0.6 thou/uL (0.8-5.3); ABSOLUTE MONOCYTES 0.1 thou/uL (0.0-1.2); ABSOLUTE NEUTROPHILS 8.8 thou/uL (1.6-8.1)
[2018-04-16 07:17] LABS: PLATELET ESTIMATE ADEQUATE
[2018-04-16 08:20] VITALS: BP 121/62
--- NOTE | 2018-04-16 09:35 | NUR ---
PATIENT ADAMENTLY REFUSED TO HAVE HER REBOLLAR REMOVED THIS SHIFT. EDUCATED ON INFECTION RISK.
[2018-04-16 13:25] LABS: BE 2.4 mmol/L (-2 to +3); HCO3 28.1 mmol/L (22.0-26.0); PCO2 47.6 mmHg (35.0-45.0); PO2 66.5 mmHg (75.0-100.0); pH 7.389 (7.340-7.450)
--- NOTE | 2018-04-16 16:11 | NUR ---
PATIENT REMAINS AT BASELINE ORIENTATION. O2 AT 5L. CONT PULSE OX IN PLACE. SAT 94%. BREATHING TREATMENTS SCHEDULED. REFUSED TO HAVE REBOLLAR REMOVED. URINE MONO. NO BM. PHYSICAL THERAPY WORKED WITH PATIENT THIS AFTERNOON. TOLERATING MEALS. GETS FRUSTRATED WITH STAFF AT TIMES. THINKS WE ARE WATCHING HER THROUGH A [address] MIRROR[address] MIDLINE IN PLACE LIBBY- FLUSHES FREELY AND IS FREE OF REDNESS, DRAINAGE, OR EDEMA. BIPAP AT HS. CALL LIGHT WITHIN REACH. EDUCATED ON FALL PREVENTION. WILL CONTINUE TO MONITOR.
[2018-04-16 16:14] VITALS: BP 100/44
[2018-04-16 19:50] VITALS: BP 86/40
--- NOTE | 2018-04-17 05:51 | NUR ---
VITALS WNL. SEE MAR. SEE CHARTING. FALL PRECAUTIONS IN PLACE. HOURLY ROUNDING FOR SAFETY.
[2018-04-17 08:00] VITALS: BP 101/62
[2018-04-17 16:34] VITALS: BP 92/67
--- NOTE | 2018-04-17 16:54 | NUR ---
ASSISTED PT.TO FILL OUT ADVANCE DIRECTIVE AND DPOA FOR HEALTH CARE. SHE WAS ALERT AND ORIENTED. KNEW THE DATE. THANKED ME AND NURSE THAT WITNESSED,ETC. DISCUSSED GOING TO SNF AGAIN WITH PT. SHE SAID IT TURNS INTO TOO LONG OF STAY FOR HER AT SNF AND SHE LOSES ALL FOOD STAMP BENEFITS AND BENEFIT OF ADULT DIAPERS. SHE THEN HAS TO GET THEM ALL ARANGED AGAIN. SHE WOULD BE AGREEABLE TO A HOSPITAL BED IF SHE WOULD QUALIFY. SHE SAID SHE NORMALLY SLEEPS ON THE COUCH AND DOESN'T HAVE A BED IN HER BEDROOM SO SHE WOULD HAVE A PLACE FOR IT. SHE THINKS IT WOULD HELP HER BREATH BETTER AND KEEP HER LEGS LESS SWOLLEN. SHE HAS A RECLINER ALSO BUT IT DOESN'T WORK REAL WELL BECAUSE IT USED TO BE HER DAD'S AND IT IS OLD. CM WILL ATTEMPT TO GET PT.QUALIFIED FOR HOSPITAL BED.
--- NOTE | 2018-04-17 17:00 | NUR ---
PATIENT REMAINS AT BASELINE ORIENTATION. TRAMADOL EFECTIVE FOR PAIN. PATIENT REQUEST TO HAVE ATIVAN SPACED OUT MORE SO SHE CAN HAVE DOSE PRIOR TO PUTTING BIPAP ON TONIGHT. UP TO CHAIR. WORKED WITH PT. KETURAH IN PLACE- MONO URINE NOTED. TOLERATING MEALS. O2 5L. DESATS WHEN ON 4L. CONT PULSE OX IN PLACE. ENCOURAGED USE OF IS. MIDLINE LIBBY- FREE OF REDNESS,DRAINAGE,OR EDEMA. FLUSHES FREELY. FALL PREVENTION IN PLACE. CHAIR ALARM IN USE. CALL LIGHT WITHIN REACH. WILL CONTINUE TO MONITOR.
[2018-04-17 20:00] VITALS: BP 108/44
[2018-04-18] VITALS: BP 93/72
[2018-04-18 04:00] VITALS: BP 120/63
--- NOTE | 2018-04-18 04:52 | NUR ---
PATIENT RESTED IN BED, NO ACUTE CHANGES. PATIENT DID NOT SHOWING SIGNS OF DISTRESS. FALL PRECAUTIONS IN PLACE, CALL LIGHT WITH IN REACH, HOURLY ROUNDING OBSERVED, BED ALARM ON.
[2018-04-18 04:55] LABS: HEMATOCRIT 39.5 % (37.0-47.0); HEMOGLOBIN 13.1 gm/dL (12.0-15.0); MCH 29.4 pg (26.0-34.0); MCHC 33.1 g/dL (28.0-37.0); MCV 88.8 fL (80.0-100.0); MPV 8.6 fl. (7.2-11.1); RBC 4.44 mil/uL (4.20-5.00); RDW-CV 14.1 % (10.5-14.5); WBC 8.9 thou/uL (4.0-11.0)
[2018-04-18 05:07] LABS: CALCIUM 9.1 mg/dL (8.5-10.1); CREATININE 1.5 mg/dL (0.6-1.3); MAGNESIUM 1.7 mg/dL (1.8-2.4); POTASSIUM 4.8 mmol/L (3.5-5.1)
[2018-04-18 07:45] VITALS: BP 118/62
--- NOTE | 2018-04-18 15:07 | NUR ---
DISCUSSED WITH . TOLD HIM PT.IS TOTALLY AGAINST GOING TO SNF. SHE WOULD BE AGREEABLE TO GETTING A HOSPITAL BED. PROBABLE DISCHARGE IN THE NEXT SEVERAL DAYS.
[2018-04-18 16:00] VITALS: BP 118/63
--- NOTE | 2018-04-18 16:44 | NUR ---
PATIENT REMAINS AT BASELINE ORIENTATION. KNEE AND BACK PAIN CONTROLLED WITH ULTRAM. MIDLINE RIGHT UPPER ARM C/D/I. FLUSHES FREELY. O2 5L. CONT PULSE OX- SAT 95%. BREATHING TREATMENTS ORDERED. WORKED WITH PT. UP WITH ASSIST OF 1. TOLERATING MEALS. BM THIS AM. REBOLLAR IN PLACE. PATIENT WONT ALLOW REMOVAL OF REBOLLAR UNTIL LATER TONIGHT WHEN LASIX IS NO LONGER IN AFFECT. BED/CHAIR ALARM IN USE. CALL LIGHT WITHIN REACH. WILL CONTINUE TO MONITOR.
[2018-04-18 22:37] VITALS: BP 116/65
--- NOTE | 2018-04-19 05:22 | NUR ---
ASSUMED CARE OF PATIENT AFTER REPORT AT APPROX 1930. ALERT AND OREINTED X4. ASSESSMENT COMPLETED AND CHARTED. VSS ON 5 LITERS 02. NO COMPLAINTS OF NAUSEA OR SOA. PAIN MINIMAL AND MANAGED WITH ORAL MEDICATION. PATIENT SLEPT WELL THROUGH THE NIGHT AND NO FURTHER COMPLAINTS THROUGHOUT SHIFT. PATIENT UP WITH STAFF ASSIST, GAIT BELT AND WALKER, TO BEDSIDE COMMODE. HOURLY ROUNDS COMPLETED. FALL PRECAUTIONS IN PLACE. CALL LIGHT WIHTIN REACH, PATIENT USES APPROPRIATELY. NURSING WILL CONTINUE TO MONITOR.
[2018-04-19 08:28] VITALS: BP 96/48
[2018-04-19 09:41] LABS: BE 3.2 mmol/L (-2 to +3); HCO3 28.5 mmol/L (22.0-26.0); PCO2 45.8 mmHg (35.0-45.0); PO2 67.1 mmHg (75.0-100.0); pH 7.412 (7.340-7.450)
[2018-04-19 09:49] LABS: ABSOLUTE BASOPHILS 0.1 thou/uL (0.0-0.2); ABSOLUTE LYMPHOCYTES 1.4 thou/uL (0.8-5.3); ABSOLUTE MONOCYTES 0.7 thou/uL (0.0-1.2); ABSOLUTE NEUTROPHILS 7.6 thou/uL (1.6-8.1); BASOPHILS 0.8 %; EOSINOPHILS 0.3 %; HEMATOCRIT 41.1 % (37.0-47.0); HEMOGLOBIN 13.8 gm/dL (12.0-15.0); LYMPHOCYTES 14.4 %; MCH 29.8 pg (26.0-34.0); MCHC 33.5 g/dL (28.0-37.0); MONOCYTES 6.7 %; MPV 8.1 fl. (7.2-11.1); NUCLEATED RBCS 0 /100WBC; PLATELET COUNT* 253 thou/uL (150-400); POLYS 77.8 %; RBC 4.62 mil/uL (4.20-5.00); RDW-CV 13.8 % (10.5-14.5); WBC 9.8 thou/uL (4.0-11.0)
[2018-04-19 09:56] LABS: CALCIUM 9.4 mg/dL (8.5-10.1); CREATININE 1.2 mg/dL (0.6-1.3); POTASSIUM 4.2 mmol/L (3.5-5.1)
--- NOTE | 2018-04-19 13:39 | NUR ---
Nutrition: reassessment. Pt eating well, 100% of 2gm Na meals. Wt: 231#. Continue at low risk.
--- NOTE | 2018-04-19 16:45 | NUR ---
ELIAS WITH [facility] RETURNED CALL AND INFORMS THAT THE PATIENT DOES QUALIFY FOR A BED BUT AN ORDER WILL NEED TO BE FAXED. CM WILL REMAIN AVAILABLE TO ASSIST AND FOLLOW NEEDED.
[2018-04-19 17:28] VITALS: BP 113/57
--- NOTE | 2018-04-19 17:28 | NUR ---
PT REMAINED ALERT AND ORIENTED THIS SHIFT. PT HAS BIPAP IN ROOM, REFUSED TO WEAR LAST NIGHT ACCORDING TO REPORT AND HAS TOLD DOCTOR DOES NOT WANT IT. PT IS CURRENTLY ON 5 LITERS O2 BY NASAL CANNULA, NORMALLY WEARS 2 LITERS AT HOME, TRYING TO WEAN DOWN O2. PT HAS HAD A COUGH TODAY, SOME SPUTUM CAME OUT BUT PATIENT DID NOT SAVE SPUTUM, CUP PLACED IN PATIENTS ROOM FOR WHEN MORE COMES UP WITH COUGHING. PT STATES THEY WOULD LIKE TO HAVE THE SHINGLES VACCINE, WILL MAKE NOTE FOR IT TO BE BROUGHT UP TOMORROW MORNING. PT HAS BEEN APPROVED FOR HOSPITAL BED AT HOME, NEED WRITTEN ORDER IN THE MORNING. FALL RISK PRECAUITONS IN PLACE. HOURLY ROUNDING COMPLETED. WILL CONTINUE TO MONITOR.
[2018-04-19 19:40] VITALS: BP 102/63
--- NOTE | 2018-04-19 21:36 | NUR ---
inital assesment completed at 194. pt up to bedside commode at that time. pt up with assist x1, gait belt and walker. after pt done on commode pt assisted to recliner. pt given PRN tylenol with HS meds for report of aching in knee's. call light in reach. pt using appropriately.
[2018-04-20 04:30] VITALS: BP 121/56
[2018-04-20 08:21] VITALS: BP 100/59
[2018-04-20] MEDS ORDERED: PREDNISONE 10 M10 MG PO (10:09)
[2018-04-20] MEDS ORDERED: ALBUTEROL SULFAT2 MG PO (10:12)
[2018-04-20] MEDS ORDERED: ADVAIR HFA 230M12 GM INH (10:12)
[2018-04-20] MEDS ORDERED: ALBUTEROL2.5 MG/31 INH (10:14)
[2018-04-20 11:07] VITALS: BP 100/59
[2018-04-20] MEDS ORDERED: DOXYCYCLINE 10100 MG PO (11:25)
[2018-04-20 12:00] VITALS: BP 99/68
[2018-04-20 12:16] VITALS: BP 100/59
--- NOTE | 2018-04-20 14:42 | NUR ---
FREIGHT CALLER SPOKE TO THE PATIENT TO DISCUSS DISCHARGE PLANNING NEEDS AND HH AT D/C. PATIENT REQUEST HH WITH [facility] SHE HAD BEEN ON-SERIVCE WITH [facility] PRIOR TO HER ADMISSION. PATIENT ALSO INFORMS THAT HER FRIEND WILL PROVIDE HER TRANSPORT HOME. D/C AVIATION ELECTRONICS TECHNICIAN SPOKE TO INTAKE WITH [facility] TO INFORM OF THE REFERRAL FOR HH AND FAXED THE PATIENT'S FACESHEET, H&P, AND D/C ORDERS. D/C AVIATION ELECTRONICS TECHNICIAN ALSO SPOKE TO ELIAS WITH [facility] AND FAXED THE DME ORDER FOR A HOSPITAL BED. ELIAS INFORMS THAT THE HOSPITAL BED SHOULD BE DELIVERED TOMORROW. D/C AVIATION ELECTRONICS TECHNICIAN WILL REMAIN AVAILABLE TO ASSIST AND FOLLOW NEEDED.
[2018-04-20 16:41] VITALS: BP 100/59
--- NOTE | 2018-04-20 16:41 | NUR ---
PT GIVEN DISCHARGE INFORMATION, CARE NOTES, AND PRESCRIPTIONS. MIDLINE REMOVED. PT BELONGINGS GATHERED. PT DENIED ANY FURTHER QUESTIONS OR CONCERNS. PT LEFT VIA WHEELCHAIR WITH NURSING STAFF TO HOME WITH HOME HEALTH. FALL RISK PRECAUTIONS IN PLACE. HOURLY ROUNDING COMPLETED.
== END 2018-04-20 16:44 | disposition home health service (06) | DRG 871 ==
LOC: M.ERS 14:02 → M.TBA-ER 18:08 → M.2W 18:08 → M.ORTHSURG 04-15 21:50
PROVIDERS: Emergency Medicine Emergency Medical Services; Internal Medicine; Internal Medicine Pulmonary Disease; ADMIT Internal Medicine
DX: A41.9 Sepsis, unspecified organism (principal); I26.99 Other pulmonary embolism without acute cor pulmonale; J96.21 Acute and chronic respiratory failure with hypoxia; J96.22 Acute and chronic respiratory failure with hypercapnia; J15.9 Unspecified bacterial pneumonia; J44.1 Chronic obstructive pulmonary disease with (acute) exacerbation; I50.32 Chronic diastolic (congestive) heart failure; G93.40 Encephalopathy, unspecified; Z68.42 Body mass index [BMI] 45.0-49.9, adult; J44.0 Chronic obstructive pulmonary disease with (acute) lower respiratory infection; I13.0 Hypertensive heart and chronic kidney disease with heart failure and stage 1 through stage 4 chronic kidney disease, or unspecified chronic kidney disease; E78.5 Hyperlipidemia, unspecified; J45.909 Unspecified asthma, uncomplicated; F31.9 Bipolar disorder, unspecified; E11.22 Type 2 diabetes mellitus with diabetic chronic kidney disease; F17.210 Nicotine dependence, cigarettes, uncomplicated; N18.3 Chronic kidney disease, stage 3 (moderate); G47.33 Obstructive sleep apnea (adult) (pediatric); E66.01 Morbid (severe) obesity due to excess calories; I95.9 Hypotension, unspecified; E78.00 Pure hypercholesterolemia, unspecified; Z90.710 Acquired absence of both cervix and uterus; Z90.49 Acquired absence of other specified parts of digestive tract; Z88.1 Allergy status to other antibiotic agents; Z99.81 Dependence on supplemental oxygen; Z88.8 Allergy status to other drugs, medicaments and biological substances; Z79.899 Other long term (current) drug therapy

== ENCOUNTER 2018-04-21 17:14 | Inpatient (IN) | payer OTHER, MEDICAID ==
[~2018-04-21] VITALS: Ht 152.4 cm; Wt 101.6 kg
--- NOTE | ~2018-04-21 | EKG ---
[place] [address] ELECTROCARDIOGRAM REPORT Name: CHONG MILNER Room: [address] IN ..#: [id number] Admission: 04/21/18 Attend Phys: Shahzad Toure Discharge: 04/25/18 Date of : 55 Report #: [id number] THIS REPORT FOR: //name// [facility] ED Test Date: 2018-04-21 Test Time: 17:46:56 Pat Name: CHONG MILNER Department: Room: [facility] Gender: F Nitroglycerin Nitrator Operator Batch: MS : 1955 Requested By: Micky Escobar Order Number: [id number] MD: Measurements Intervals [place] Rate: 83 P: 49 CO: 161 QRS: 18 QRSD: 92 T: 58 QT: 371 QTc: 436 Interpretive Statements Sinus rhythm Probable left atrial enlargement Compared to ECG 04/12/2018 12:52:33 Poor R-wave progression no longer present Early repolarization no longer present [email or web address] By: 1746 1746 Epiphany Epiphany, /EPI
[~2018-04-21 17:14] MED LIST changes: +ADVAIR HFA 230M12 GM INH; +ALBUTEROL SULFAT2 MG PO; +ALBUTEROL2.5 MG/31 INH; +DOXYCYCLINE 10100 MG PO
[2018-04-21 17:19] VITALS: BP 91/55
[2018-04-21 17:57] LABS: ABSOLUTE BASOPHILS 0.1 thou/uL (0.0-0.2); ABSOLUTE EOSINOPHILS 0.1 thou/uL (0.0-0.7); ABSOLUTE LYMPHOCYTES 2.6 thou/uL (0.8-5.3); ABSOLUTE MONOCYTES 1.1 thou/uL (0.0-1.2); ABSOLUTE NEUTROPHILS 8.6 thou/uL (1.6-8.1); BASOPHILS 0.7 %; EOSINOPHILS 0.8 %; HEMATOCRIT 45.1 % (37.0-47.0); LYMPHOCYTES 20.6 %; MCH 29.3 pg (26.0-34.0); MCHC 33.2 g/dL (28.0-37.0); MCV 88.4 fL (80.0-100.0); MONOCYTES 8.8 %; MPV 8.5 fl. (7.2-11.1); NUCLEATED RBCS 0 /100WBC; PLATELET COUNT* 291 thou/uL (150-400); POLYS 69.1 %; RBC 5.11 mil/uL (4.20-5.00); RDW-CV 14.1 % (10.5-14.5); WBC 12.4 thou/uL (4.0-11.0)
[2018-04-21 18:06] LABS: ANION GAP 11 mmol/L (7-16); BUN 66 mg/dL (7-18); CALCIUM 9.2 mg/dL (8.5-10.1); CHLORIDE 98 mmol/L (98-107); CO2 28 mmol/L (21-32); GLUCOSE 135 mg/dL (70-99); POTASSIUM 3.7 mmol/L (3.5-5.1); SODIUM 137 mmol/L (136-145)
[2018-04-21 18:07] LABS: CREATININE 2.6 mg/dL (0.6-1.3)
[2018-04-21 18:13] LABS: ALBUMIN 3.5 g/dL (3.4-5.0); ALKALINE PHOSPHATASE 81 U/L (46-116); SGOT 18 U/L (15-37); SGPT 47 U/L (30-65); TOTAL BILIRUBIN 0.4 mg/dL (<0.1-1.0); TOTAL PROTEIN 6.7 g/dL (6.4-8.2); TROPONIN-I LEVEL <0.06 ng/mL (<0.06)
[2018-04-21 18:32] LABS: APTT 23.2 Seconds (25.0-31.3); PROTIME 10.7 Seconds (9.20-11.50)
[2018-04-21 20:20] VITALS: BP 90/57
--- NOTE | 2018-04-22 05:25 | NUR ---
ASSESSMENT: PT REMAIN ALERT AND ORIENT TIMES THREE. PT WAS VERY DROWSY AT THE TIME OF ADMISSION AND SLEPT MAJORITY OF THE SHIFT. EASY TO AROUSE, FOLLOW COMMANDS, DENY PAIN. NEW IV STARTED IN RIGHT UPPER ARM. PT WAS PLEASANT WHEN AWAKE BUT SHORTLY FELL BACK TO SLEEP. ABLE TO GET UP TO THE BSC WITH MINIMAL ASSISTANCE. A BLOOD SUGAR WAS CHECK BECAUSE PT HAS A HX OF DM AND BECAUSE SHE WAS SLEEPING SO MUCH. BLOOD SUGAR WAS 236. PT VOICED THAT SHE DID NOT WANT TO GO TO A PSYCH INSITUTE. WHEN ASKED WHY DID SHE SAY THAT, SHE WAS ONCE AGAIN ASLEEP. SLOW PROGRESS TOWARDS DC GOALS. WILL CONTINUE TO MONITOR.
[2018-04-22 07:45] VITALS: BP 119/75
--- NOTE | 2018-04-22 14:00 | NUR ---
SPOKE WITH PT. IN ROOM. SHE WAS DROWSY. SHE SAID SO YOURE JUST GONNA KICK ME OUT OF HERE? EXPLAINED IT WOULD BE NEXT WEEK WHEN SHE WAS MEDICALLY STABLE. TOLD HER SHE NEEDED TO GO TO SNF SINCE SHE WASN'T ABLE TO CARE FOR HERSELF AT HOME. GAVE HER A LIST OF INSURANCE CONTRACTED FACILITIES FOR SNFS. SHE SAID SHE HAD BEEN TO [facility] BEFORE. ENCOURAGED HER TO LOOK AT LIST AND I WOUDL SEE HER ON TUESDAY AM. SNF WILL NEED TO GET INSURANCE AUTHORIZATION.
[2018-04-22 16:00] VITALS: BP 124/62
--- NOTE | 2018-04-22 18:44 | NUR ---
PT ALERT AND ORIENTED X 4. IVF INFUSING @ 100 MLS/HR. PT HAD NAUSEA AND SMALL AMOUNT OF EMEISIS. OBTAINED AND GIVEN ZOFRAN FOR NAUSEA. OXYGEN @ 2 L/NC. UP TO CHAIR AND BSC DURING DAY. HOURLY ROUNDS MAINTAINED. WILL USE CALL LIGHT FOR ASSISTANCE.
[2018-04-22 20:45] VITALS: BP 99/45
[2018-04-23 00:45] VITALS: BP 114/58
--- NOTE | 2018-04-23 04:47 | NUR ---
ALERT AND ORIENTED X3. RESTING QUIETLY ON HOURLY ROUNDS. DENIES C/O PAIN OR NAUSEA. UP WITH 1 ASSIST GAIT BELT AND WALKER TO BEDSIDE COMMODE. REMAINS ON O2 AT 2L/NC TO KEEP O2 SATS IN 90'S. CONTINUES ON PO ANTIBIODICS. CALL LIGHT WITHIN REACH.
[2018-04-23 04:58] LABS: HEMATOCRIT 37.8 % (37.0-47.0); MCH 29.3 pg (26.0-34.0); MCHC 32.9 g/dL (28.0-37.0); MCV 89.1 fL (80.0-100.0); MPV 8.3 fl. (7.2-11.1); RBC 4.24 mil/uL (4.20-5.00); WBC 9.2 thou/uL (4.0-11.0)
[2018-04-23 05:20] LABS: HEMOGLOBIN 12.4 gm/dL (12.0-15.0)
[2018-04-23 05:43] LABS: CALCIUM 8.9 mg/dL (8.5-10.1); POTASSIUM 5.2 mmol/L (3.5-5.1)
[2018-04-23 05:46] LABS: CREATININE 1.2 mg/dL (0.6-1.3)
[2018-04-23 08:00] VITALS: BP 132/54
[2018-04-23 17:38] VITALS: BP 97/48
--- NOTE | 2018-04-23 18:20 | NUR ---
PT ALERT AND ORIENTED X 4. DENIED NAUSEA DURING DAY. RECEIVED TYLENOL FOR GENERALIZED PAIN WHICH WAS EFFECTIVE. OXYGEN @ 2 L/NC. IV PATENT. UP TO CHAIR AND BSC DURING DAY. PT TEARY DURING DAY DUE TO HAVING TO GO TO SKILLED FACILITY UPON DISCHARGE. HOURLY ROUNDS MAINTAINED. WILL USE CALL LIGHT FOR ASSISTANCE.
[2018-04-23 20:00] VITALS: BP 106/86
[2018-04-24 04:33] LABS: HEMATOCRIT 39.9 % (37.0-47.0); HEMOGLOBIN 13.3 gm/dL (12.0-15.0); MCHC 33.2 g/dL (28.0-37.0); MCV 90.2 fL (80.0-100.0); MPV 8.1 fl. (7.2-11.1); RBC 4.43 mil/uL (4.20-5.00); RDW-CV 14.2 % (10.5-14.5); WBC 7.8 thou/uL (4.0-11.0)
[2018-04-24 04:45] LABS: CALCIUM 9.2 mg/dL (8.5-10.1); CREATININE 1.1 mg/dL (0.6-1.3); MAGNESIUM 1.8 mg/dL (1.8-2.4); POTASSIUM 4.6 mmol/L (3.5-5.1)
--- NOTE | 2018-04-24 05:33 | NUR ---
ASSUMED PATIENT CARE AT 1900. MINOR COMPLAINTS OF PAIN NOTED THROUGH THE NIGHT. CONTROLLED WITH ORAL PAIN MEDICATION. PATIENT STATES THAT SHE WANTS TO GO "ACROSS THE STREET" ABLE TO AMBULATE TO THE [facility] BY USING FURNITURE. IV PATENT. TRANSIT MIX OPERATOR AND HOURLY ROUNDING COMPLETED DOCUMENTED.
[2018-04-24 08:00] VITALS: BP 130/54
--- NOTE | 2018-04-24 09:00 | NUR ---
PT.CHOSE [facility] TO GO TO FOR SKILLED STAY. FAXED REFERRAL TO [facility] THIS AM. LEFT MESSAGE ON THEIR VM. SHANTA CAME TO VISIT PT. SHE SAID THEY COULD ACCEPT TOMORROW IF THEY HAVE BED AVAILABILITY. SPOKE WITH PT.AT LENGTH ABOUT HER PROGNOSIS, DX PROCESS, CODE STATUS. SHE SEEMED TO UNDERSTAND CONVERSATION AND MAKE APPROPRIATE COMMENTS. SHE ADAMANTLY WANTS TO BE A NO CODE. CM WILL FOLLOW.
--- NOTE | 2018-04-24 13:36 | NUR ---
Nutrition: Pt assessed for high BMI. Pt has been in hospital last week as well. Wt is fluctuating 220s to 240s. CHO count diet. Usually eats well. +BM yday. BG 165, alb 3.5. RX: prednisone, insulin. H/o DM II, COPD, HTN, schioid/bipolar. Pt does not want trilogy as a treatment. Apparently, had end of life discussion with physician. Possibly go to SNF. No nutirtion interventions needed at this time. Consider Low nutrition risk.
[2018-04-24 17:19] VITALS: BP 145/70
--- NOTE | 2018-04-24 18:14 | NUR ---
PT IS ALERT AND ORIENTED X 4. IV PATENT. OXYGEN @ 2 L/NC. UP TO CHAIR AND BSC DURING DAY WITH ASSIST X 1 WITH GAIT BELT AND WALKER. PT HAD ONE EPISODE OF COUGHING UP SOME WHITE THICK SPUTUM. NAUSEA MANAGED WITH PO ZOFRAN. PT TO GO TO SKILLED FACILITY TOMORROW, WHICH PT IS TEARY ABOUT. HOURLY ROUNDS MAINTAINED. PT WILL USE CALL LIGHT FOR ASSISTANCE.
[2018-04-24 21:30] VITALS: BP 109/55
--- NOTE | 2018-04-25 05:41 | NUR ---
PATIENT HAS SLEPT OFF AND ON DURING THE SHIFT. VSS ON 2L VIA NASAL CANNULA. NO C/O PAIN. IV IN RIGHT FOREARM-SL. PATIENT IS UP WITH ASSIST X 1 WITH GAITBELT AND WALKER TO THE BSC. PATIENT INSTRUCTED TO USE CALL LIGHT WHEN NEEDING ASSISTANCE. FALL PRECAUTIONS IN PLACE AND HOURLY ROUNDS MADE. WILL CONTINUE WITH PLAN OF CARE AND NURSING TO MONITOR.
[2018-04-25 08:00] VITALS: BP 138/75
[2018-04-25] MEDS ORDERED: XARELTO20 MG PO (12:04)
[2018-04-25] MEDS ORDERED: ASPIR 8181 MG PO (12:04)
--- NOTE | 2018-04-25 14:40 | NUR ---
[facility] NOTIFIED PT.THIS AM THAT PT.HAD DISCHARGE ORDERS. SHE SAID THEY CAN ACCEPT PT.TO A SKILLED BED TODAY . SHE WILL SEND OFF FOR AUTHORIZATION. SHE CALLED AT 1300 AND SAID SHE HAS OBTAINED INS.AUTH. SHE WILL SET UP VAN FOR [id number]. CHART TO BE COPIED TO GO WITH PT. NURSING TO CALL REPORT. NOTIFIED PT. AND . FAXED DISCHARGE ORDERS TO JANETH AT [facility].
--- NOTE | 2018-04-25 16:06 | NUR ---
PT REMAINED ALERT AND ORIENTED THIS SHIFT. PT LEFT ON 2 LITERS O2 BY NASAL CANNULA. PT LEFT FOR REHAB FACILITY WITH NURSING STAFF AND WHEELCHAIR VAN. FALL RISK PRECAUTIONS IN PLACE. HOURLY ROUNDING COMPLETED. PT REFUSED TO WEAR GAIT BELT WHEN AMBULATING TO COMMODE. IV REMOVED. CHART COPIED AND GIVEN TO TRANSPORTER. ORIGINAL COPY OF DPOA PAPERWORK IN [place]OPE FOR PATIENT TO TAKE HOME WHEN DISCHARGED. PT LEFT VIA WHEELCHAIR WITH NURSING STAFF.
== END 2018-04-25 16:08 | DRG 682 ==
LOC: M.ERS 17:14 → M.TBA-ER 17:41 → M.ORTHSURG 17:41
PROVIDERS: Emergency Medicine; Internal Medicine; ADMIT Internal Medicine
DX: N17.9 Acute kidney failure, unspecified (principal); J18.9 Pneumonia, unspecified organism; R65.11 Systemic inflammatory response syndrome (SIRS) of non-infectious origin with acute organ dysfunction; I50.33 Acute on chronic diastolic (congestive) heart failure; J96.20 Acute and chronic respiratory failure, unspecified whether with hypoxia or hypercapnia; I13.2 Hypertensive heart and chronic kidney disease with heart failure and with stage 5 chronic kidney disease, or end stage renal disease; J44.1 Chronic obstructive pulmonary disease with (acute) exacerbation; J44.0 Chronic obstructive pulmonary disease with (acute) lower respiratory infection; K59.00 Constipation, unspecified; F17.210 Nicotine dependence, cigarettes, uncomplicated; Z66 Do not resuscitate; N18.3 Chronic kidney disease, stage 3 (moderate); E11.22 Type 2 diabetes mellitus with diabetic chronic kidney disease; E78.00 Pure hypercholesterolemia, unspecified; F31.9 Bipolar disorder, unspecified; Z90.710 Acquired absence of both cervix and uterus; Z88.8 Allergy status to other drugs, medicaments and biological substances; Z88.1 Allergy status to other antibiotic agents; Z79.899 Other long term (current) drug therapy; Z90.49 Acquired absence of other specified parts of digestive tract; Z91.19 Patient's noncompliance with other medical treatment and regimen

== ENCOUNTER 2018-08-07 20:58 | Inpatient (IN) | payer OTHER, MEDICAID ==
[~2018-08-07] VITALS: Ht 152.4 cm; Wt 103.7 kg
[~2018-08-07 20:58] MED LIST changes: +ASPIR 8181 MG PO; +SYNTHROID 125 MCG PO; -SYNTHROID125 MCG PO; +XARELTO20 MG PO
[2018-08-07 21:00] VITALS: BP 160/83
[2018-08-07] MEDS ORDERED: NORCO 5-325 TA1 EACH PO (21:12)
[2018-08-07 21:22] LABS: BE -4.1 mmol/L (-2 to +3); PCO2 34.6 mmHg (35.0-45.0); pH 7.384 (7.340-7.450)
[2018-08-07 21:26] LABS: PO2 58.3 mmHg (75.0-100.0)
[2018-08-07 21:51] LABS: ABSOLUTE LYMPHOCYTES 1.4 thou/uL (0.8-5.3); ABSOLUTE MONOCYTES 0.9 thou/uL (0.0-1.2); ABSOLUTE NEUTROPHILS 6.5 thou/uL (1.6-8.1); BASOPHILS 0.6 %; EOSINOPHILS 0.5 %; HEMATOCRIT 31.9 % (37.0-47.0); HEMOGLOBIN 11.2 gm/dL (12.0-15.0); MCH 31.6 pg (26.0-34.0); MCHC 35.1 g/dL (28.0-37.0); MCV 89.9 fL (80.0-100.0); MONOCYTES 9.9 %; MPV 7.7 fl. (7.2-11.1); NUCLEATED RBCS 0 /100WBC; PLATELET COUNT* 241 thou/uL (150-400); RBC 3.55 mil/uL (4.20-5.00); RDW-CV 15.8 % (10.5-14.5)
[2018-08-07 22:00] LABS: PROTIME 10.7 Seconds (9.20-11.50)
[2018-08-07 22:08] LABS: ANION GAP 10 mmol/L (7-16); BUN 17 mg/dL (7-18); CALCIUM 9.3 mg/dL (8.5-10.1); CHLORIDE 99 mmol/L (98-107); CO2 25 mmol/L (21-32); GLUCOSE 100 mg/dL (70-99); POTASSIUM 4.4 mmol/L (3.5-5.1); SODIUM 134 mmol/L (136-145); TROPONIN-I LEVEL <0.06 ng/mL (<0.06)
[2018-08-07 22:10] LABS: ALBUMIN 3.3 g/dL (3.4-5.0); ALKALINE PHOSPHATASE 78 U/L (46-116); NT-PRO BRAIN NAT PEPTIDE 551 pg/mL (<300); SGOT 14 U/L (15-37); SGPT 20 U/L (30-65); TOTAL BILIRUBIN 0.3 mg/dL (<0.1-1.0); TOTAL PROTEIN 6.6 g/dL (6.4-8.2)
[2018-08-07 22:34] LABS: URINE BILIRUBIN NEGATIVE (Negative); URINE BLOOD NEGATIVE (Negative); URINE CLARITY CLEAR; URINE COLOR YELLOW; URINE GLUCOSE-RANDOM NEGATIVE (Negative); URINE KETONES NEGATIVE (Negative); URINE LEUKOCYTES-REFLEX NEGATIVE (Negative); URINE NITRITE-REFLEX NEGATIVE (Negative); URINE PROTEIN NEGATIVE (Negative); URINE SPECIFIC GRAVITY <= 1.005 (1.005-1.030); URINE UROBILINOGEN 0.2 E.U./dl (0.2-1.0)
[2018-08-07 22:49] LABS: BE -2.5 mmol/L (-2 to +3); PCO2 38.1 mmHg (35.0-45.0); pH 7.383 (7.340-7.450)
[2018-08-07 22:53] LABS: PO2 57.2 mmHg (75.0-100.0)
--- NOTE | 2018-08-07 23:15 | NUR ---
PATIENT REFUSED BIPAP. O2 SATS 92% ON 5L NC
[2018-08-08 04:39] VITALS: BP 135/83
--- NOTE | 2018-08-08 04:42 | NUR ---
[address]
--- NOTE | 2018-08-08 06:02 | NUR ---
PT ARRIVED FROM CT AROUND 414. ASSESSMENT COMPLETED CHARTED. A0XYGIO INITIATED. ABLE TO MAKE NEEDS KNOWN. UP WITH ONE TO BSC. C/O PAIN IN LEGS AND HIP AND GAVE PRN PAIN MEDICATION. PT CALLS OUT FREQUENTLY FOR PAIN MEDICATION AND FORGETS ASKING AND ASKS AGAIN. PT RESTING IN BED AT THIS TIME. IV FLUIDS RUNNING PER P.O. WILL CONTINUE TO MONITOR.
--- NOTE | 2018-08-08 07:20 | NUR ---
CHANGE OF SHIFT BEDSIDE REPORT GIVEN PATIENT SEEN AT BEDSIDE, IN BED WATCHING TV ASSUMED PATIENT CARE
[2018-08-08 08:00] VITALS: BP 155/70
--- NOTE | 2018-08-08 08:56 | NUR ---
RECEIVED CALL FROM ALONSO/TEODORA FROM [facility]. SHE STATED THAT THEY WERE UNABLE TO SEE PT UNTIL SHE ESTABLISHES WITH A PCP. ALONSO HAD GIVEN PT SEVERAL RESOURCES AND ENCOUAGED HER TO MAKE AN APPT BUT AT THIS TIME, PT HAS NOT. PER ALONSO, PT DC'D FROM [facility] ON TUE AND WAS CALLING HH WITH C/O OF SOA AND PAIN ON TUESDAY. PT HAS A CIVIL DRAFTER THRU [facility]HAILY [facility] WHO TAKES PT TO APPTS. HE WAS ABLE TO ASSIST WITH MAKING A F/U PSYCH APPT BUT NOT PCP PER ALONSO.
--- NOTE | 2018-08-08 10:41 | EKG ---
[place] [address] ELECTROCARDIOGRAM REPORT Name: ABIGAILTONYACHONG Room: [address] ADM IN [facility].#: [id number] Admission: 08/08/18 Attend Phys: Jm Webster MD Discharge: Date of : 55 Report #: [id number] THIS REPORT FOR: //name// [facility] ED Test Date: 2018-08-07 Test Time: 21:55:16 Pat Name: CHONG MILNER Department: Room: [facility] Gender: F Oracle Hyperion Consultant: CIERA : 1955 Requested By: Nasrin Cervantes Order Number: [id number] MD: Tacos Gary Measurements Intervals [place] Rate: 108 P: 42 IA: 160 QRS: 22 QRSD: 86 T: 66 QT: 318 QTc: 426 Interpretive Statements Sinus tachycardia Compared to ECG 06/01/2018 07:17:21 Sinus rhythm no longer present Electronically Signed On 08-08-2018 10:41:06 CDT by Tacos Gary [email or web address] <ELECTRONICALLY SIGNED> By: Tacos Gary MD, [facility] 08/08/18 1041 [id number] Tacos Gary MD, [facility] /EPI
--- NOTE | 2018-08-08 10:42 | NUR ---
Pt is A&O. Pt states that she was just discharged from [facility] on Tuesday to home with HH. Pt states that she was instructed to schedule an appt for a PCP, Pt states that she has not had time to do that yet. Pt resides at home alone. Pt uses a walker for mobility and also has a RW. Pt continues to have her in home caregivers through [facility], her aides come 3 times/week for 4 hours and the nurse comes once/week. Pt stated that she discharged herself from [facility], stating "it wasn't what I was looking for." Hx of [facility] and [facility]. CM contacted Juanita at [facility], to determine if Pt was every qualified for a trilogy/bipap. Pt has home o2 through [facility] that she wears continuously. Pt's goal is to return home at mo. Following for disposition.
[2018-08-08 12:17] VITALS: BP 124/65
[2018-08-08 15:58] VITALS: BP 132/70
[2018-08-08 20:00] VITALS: BP 133/70
[2018-08-09] VITALS: BP 124/49
--- NOTE | 2018-08-09 03:19 | NUR ---
ASSUMED PT CARE 2 1929. NO SOA REPORTED OR OBSERVED. PT GIVEN TYLENOL X2 FOR PAIN AND ZOFRAN X 1. PT TRACINF ST-SR ON MONITOR. PT WAS YELLING OUT EARLIER IN SHIFT INSTEAD OF USING CALL LIGHT BUT WAS REDIRECTABLE. HAS BEEN USING CALL LIGHT REST OF SHFIT. CALL LIGHT IN REACH. WILL CONTINUE TO MONITOR.
[2018-08-09 04:00] VITALS: BP 130/43
--- NOTE | 2018-08-09 07:20 | NUR ---
PATIENT CHANGE OF SHIFT, BEDSIDE REPORT GIVEN PATIENT SEEN AT BEDSIDE, IN BED ASLEEP ASSUMED PATIENT CARE
[2018-08-09 08:00] VITALS: BP 139/92
[2018-08-09 10:22] LABS: ABSOLUTE LYMPHOCYTES 1.3 thou/uL (0.8-5.3); ABSOLUTE MONOCYTES 0.6 thou/uL (0.0-1.2); ABSOLUTE NEUTROPHILS 3.4 thou/uL (1.6-8.1); BASOPHILS 0.3 %; CALCIUM 9.3 mg/dL (8.5-10.1); CREATININE 0.8 mg/dL (0.6-1.3); EOSINOPHILS 0.7 %; HEMOGLOBIN 11.1 gm/dL (12.0-15.0); LYMPHOCYTES 23.7 %; MCH 30.4 pg (26.0-34.0); MCHC 33.6 g/dL (28.0-37.0); MCV 90.4 fL (80.0-100.0); MPV 7.7 fl. (7.2-11.1); NUCLEATED RBCS 0 /100WBC; PLATELET COUNT* 264 thou/uL (150-400); POLYS 64.3 %; POTASSIUM 4.3 mmol/L (3.5-5.1); RBC 3.65 mil/uL (4.20-5.00); RDW-CV 15.9 % (10.5-14.5); WBC 5.3 thou/uL (4.0-11.0)
[2018-08-09 12:00] VITALS: BP 123/34
[2018-08-09 20:00] VITALS: BP 128/70
[2018-08-10] MEDS ORDERED: ATIVAN1 MG PO (00:21)
[2018-08-10] MEDS ORDERED: NORCO 5-325 TA1 EACH PO (00:25)
[2018-08-10] MEDS ORDERED: ZANAFLEX4 MG PO (00:27)
--- NOTE | 2018-08-10 01:57 | NUR ---
ASSUMED PT CARE @ 1930. NO SOA REPORTED OR OBSERVED. PT C/O OF ANXIETY BUT WAS ABLE TO CALM DOWN AND TRY OUT HER TRILOGY. TRILOGY INTACT. PT APPEARS TO BE RESTING COMFORTABLY. CALL LIGHT IN REACH. HOURLY ROUNDING FOR SAFETY.
[2018-08-10 04:00] VITALS: BP 135/59
[2018-08-10 07:30] VITALS: BP 109/46
--- NOTE | 2018-08-10 11:51 | NUR ---
ASSUMED PT CARE AT 0730, LYING IN BED. AOX4, O2 SAT AT 4L NC, SBA. TRACING SR ON PATIENT SCHEDULING COORDINATOR. PT GOAL IS FOR DISCHARGE AND TITRATE O2. PT COMPLAINS OF BILATERAL KNEE PAIN. PT FOR ACCU CHECK. LAST BM ON 08/09/18/, ABDOMEN SOFT AND ROUND. PT USES COMMODES. RASH ON THE LOWER ABDOMEN AND GROIN NOTED. NO IV. VSS, ASSESSMENT CHARTED, MEDS GIVEN PER MAR. CALL LIGHT WITHIN REACH, HOURLY ROUNDING OBSERVED. WILL CONTINUE TO MONITOR.
[2018-08-10 12:00] VITALS: BP 135/69
--- NOTE | 2018-08-10 12:37 | NUR ---
Pt discharging to home today, [facility] will provide dc transportation, pick up worker between 3-330pm. Pt declined Palliative Care, despite CM educating Pt on the benefits for PC, since Pt does not have a PCP. Pt did complete an outside of the hospital DNR.
[2018-08-10] MEDS ORDERED: AZITHROMYCIN 2250 MG PO (12:54)
[2018-08-10] MEDS ORDERED: PREDNISONE 20 M20 MG PO (12:55)
[2018-08-10 14:59] VITALS: BP 135/69
--- NOTE | 2018-08-10 15:13 | NUR ---
PT AOX4, SBA, O2 SAT 90'S 2L NC. DISCHARGED PACKET DISCUSS, COMMUNICATES UNDERSTANDING. MEDICATION SCRIPT GIVEN. TELE REMOVED. ALL BELONGINGS PACKED AND CHECK. REMINDED TO FIND PCP. FOLLOW UP WITH PULMONOLOGY. LEFT THE UNIT 1520 WITH WHEELCHAIR SERVICE VAN.
--- NOTE | 2018-08-10 16:08 | NUR ---
I HAVE REVIEWED AND AGREE WITH THE CHARTING AND ASSESMENT OF MISSAEL Abreu RN ON 08/10/18
== END 2018-08-10 15:15 | disposition home or self-care (01) | DRG 189 ==
LOC: M.ERS 20:58 → M.2W 08-08 02:54 → M.TBA-ER 08-08 02:54 → M.2W 08-08 03:33
PROVIDERS: Emergency Medicine; Family Medicine; ADMIT Internal Medicine
PROC: 5A09357 Assistance with Respiratory Ventilation, Less than 24 Consecutive Hours, Continuous Positive Airway Pressure (ICD-10-PCS; principal; 2018-08-10)
DX: J96.21 Acute and chronic respiratory failure with hypoxia (principal); L03.90 Cellulitis, unspecified; J44.1 Chronic obstructive pulmonary disease with (acute) exacerbation; I50.32 Chronic diastolic (congestive) heart failure; I13.0 Hypertensive heart and chronic kidney disease with heart failure and stage 1 through stage 4 chronic kidney disease, or unspecified chronic kidney disease; Z68.41 Body mass index [BMI] 40.0-44.9, adult; J96.22 Acute and chronic respiratory failure with hypercapnia; E78.00 Pure hypercholesterolemia, unspecified; J45.909 Unspecified asthma, uncomplicated; F31.9 Bipolar disorder, unspecified; F20.9 Schizophrenia, unspecified; F17.210 Nicotine dependence, cigarettes, uncomplicated; E66.01 Morbid (severe) obesity due to excess calories; E11.22 Type 2 diabetes mellitus with diabetic chronic kidney disease; N18.2 Chronic kidney disease, stage 2 (mild); M19.90 Unspecified osteoarthritis, unspecified site; Z86.711 Personal history of pulmonary embolism; Z90.710 Acquired absence of both cervix and uterus; Z88.1 Allergy status to other antibiotic agents; Z88.8 Allergy status to other drugs, medicaments and biological substances; Z91.19 Patient's noncompliance with other medical treatment and regimen; Z79.899 Other long term (current) drug therapy

== ENCOUNTER 2018-09-23 22:38 | Inpatient (IN) | payer OTHER, MEDICAID ==
[~2018-09-23] VITALS: Ht 152.4 cm; Wt 103.0 kg
[~2018-09-23 22:38] MED LIST changes: +AZITHROMYCIN 2250 MG PO; +ZANAFLEX4 MG PO
[2018-09-23 22:40] VITALS: BP 131/46
[2018-09-23 23:04] LABS: ABSOLUTE BASOPHILS 0.1 thou/uL (0.0-0.2); ABSOLUTE EOSINOPHILS 0.1 thou/uL (0.0-0.7); ABSOLUTE LYMPHOCYTES 1.3 thou/uL (0.8-5.3); ABSOLUTE MONOCYTES 1.1 thou/uL (0.0-1.2); ABSOLUTE NEUTROPHILS 10.8 thou/uL (1.6-8.1); BASOPHILS 0.5 %; EOSINOPHILS 0.6 %; HEMATOCRIT 32.4 % (37.0-47.0); HEMOGLOBIN 10.8 gm/dL (12.0-15.0); MCH 29.7 pg (26.0-34.0); MCHC 33.4 g/dL (28.0-37.0); MCV 88.8 fL (80.0-100.0); MONOCYTES 8.2 %; MPV 6.5 fl. (7.2-11.1); NUCLEATED RBCS 0 /100WBC; PLATELET COUNT* 371 thou/uL (150-400); POLYS 80.7 %; RBC 3.64 mil/uL (4.20-5.00); RDW-CV 16.1 % (10.5-14.5); WBC 13.4 thou/uL (4.0-11.0)
[2018-09-23 23:08] LABS: URINE BILIRUBIN NEGATIVE (Negative); URINE BLOOD NEGATIVE (Negative); URINE CLARITY CLEAR; URINE COLOR YELLOW; URINE GLUCOSE-RANDOM TRACE (Negative); URINE KETONES NEGATIVE (Negative); URINE LEUKOCYTES-REFLEX NEGATIVE (Negative); URINE NITRITE-REFLEX NEGATIVE (Negative); URINE PROTEIN NEGATIVE (Negative); URINE UROBILINOGEN 0.2 E.U./dl (0.2-1.0)
[2018-09-23 23:11] LABS: ANION GAP 11 mmol/L (7-16); BUN 16 mg/dL (7-18); CHLORIDE 96 mmol/L (98-107); CO2 26 mmol/L (21-32); CREATININE 0.8 mg/dL (0.6-1.3); GLUCOSE 149 mg/dL (70-99); POTASSIUM 4.7 mmol/L (3.5-5.1); SODIUM 133 mmol/L (136-145)
[2018-09-23 23:22] LABS: ALBUMIN 3.6 g/dL (3.4-5.0); ALKALINE PHOSPHATASE 91 U/L (46-116); LIPASE 138 U/L (73-393); NT-PRO BRAIN NAT PEPTIDE 229 pg/mL (<300); SGOT 16 U/L (15-37); SGPT 19 U/L (30-65); TOTAL BILIRUBIN 0.3 mg/dL (<0.1-1.0); TROPONIN-I LEVEL <0.06 ng/mL (<0.06)
[2018-09-24 05:00] VITALS: BP 124/67
--- NOTE | 2018-09-24 07:06 | NUR ---
THIS NURSE RECEIVED REPORT FROM CLEOPATRA REEVES. THIS NURSE TO ASSUME PT CARE AT THIS TIME.
[2018-09-24 08:00] VITALS: BP 129/64
--- NOTE | 2018-09-24 08:30 | NUR ---
PT LAYING IN BED, STATING SHE IS ANXIOUS AND NEEDS ANOTHER BREATHING TREATMENT. PT REPOSTIONED IN BED, HOB ELEVATED, PILLOWS PLACED BEHIND PT BACK TO HELP WITH BREATHING. RT CALLED FOR TREATMENT.
--- NOTE | 2018-09-24 08:40 | NUR ---
RT AT BEDSIDE ADMINISTERING BREATHING TREATMENT.
[2018-09-24 12:46] VITALS: BP 146/82
[2018-09-24 13:00] VITALS: BP 111/56
--- NOTE | 2018-09-24 17:51 | NUR ---
PATIENT ARRIVED FROM ER THIS AFTERNOON. PATIENT SETTLED TO ROOM AND HISTORY, ASSESSMENT AND VITALS COMPLETED AND DOCUMENTED. PATIENT HAS EDEMA TO BILATERAL LOWER EXTREMITITES. PATIEN THAS COMPLAINTS OF GENERALIZED PAIN, TREATED WITH IBUPROFEN AND TIZANADINE. PATIENT HAS EXCELLENT APPETITE BUT COMPLAINTS OF NAUSEA, ZOFRAN GIVEN. PATIENT IS UP TO EDGE OF BED INDEPENDENTLY. PATIENT DENIES ANY NEEDS AT THIS TIME. CALL LIGHT WITHIN REACH. WILL CONTINUE TO MONITOR.
[2018-09-24 20:10] VITALS: BP 108/66
[2018-09-25 04:17] LABS: CALCIUM 8.4 mg/dL (8.5-10.1); CREATININE 0.7 mg/dL (0.6-1.3); MAGNESIUM 1.5 mg/dL (1.8-2.4); POTASSIUM 4.5 mmol/L (3.5-5.1)
--- NOTE | 2018-09-25 05:29 | NUR ---
PT SLEPT ON AND OFF OVERNIGHT, REQUESTING PAIN MED, ANXIETY MED, MUSCLE RELAXERS ETC FREQUENTLY WHILE AWAKE. REBOLLAR DRAINING YELLOW URINE. POSITIONS SELF FROM SIDE TO SIDE FREQUENTLY IN BED. O2 4L NC. AO, FORGETFUL AND IMPULSIVE. R AC AND R HAND IVSL. HS ACCUCHECK 216, INSULIN GIVEN WITH SNACK. BLE EDEMA AND REDNESS, KEVIN HOSE REQUESTED FROM CS. PT ENCOURAGED TO KEEP BLE ELEVATED. AM LABS DRAWN. ABLE TO USE CALL LITE AND MAKE NEEDS KNOWN, BED ALARM ON FOR SAFETY.
[2018-09-25 08:00] VITALS: BP 114/57
--- NOTE | 2018-09-25 12:13 | NUR ---
CM COMPLETED INITIAL ASSESSMENT TO DISCUSS DISCHARGE PLAN. PT STATES SHE WAS RELEASED FROM [facility] AND WAS HOME ONLY ABOUT 5 HOURS BEFORE NEEDING TO COME TO HOSPITAL FOR BREATHING ISSUES. PT LIVES AT HOME AND HAS SOME SUPPORT FROM [place] FRIENDS, HAS NO FAMILY INVOLVEMENT. PT HAS O2, TRIOLOGY MACHINE AND NEBULIZER, WALKER AND W/C AT HOME. PT HAS CAREGIVER FROM [facility]. PT STATES SHE DOESNT QUALIFY FOR HH UNTIL SHE F/U W/A DOCTOR. PT REFUSES SNF @ D/C, STATES SHE IS GOING HOME. CM PROVIDED PT W/[facility] NUMBER [phone]. CM ENCOURGED PT TO SCHEDULE A FOLLOW UP APPOINT. PT STATED HER MECHANICAL ENGINEERING TECHNOLOGIST, HAILY NORRIS, FROM [facility] IS GOING TO PROVIDE TRANSPORTATION TO DOCTOR. CM CALLED AND LFT VM TO F/U W/HAILY. [phone]. CM PROVIDED PT W/A RESOURCE PACKET W/INFORMATION FOR MEDICAL CLINICS, ETC. CM TO CONT TO FOLLOW TO ASSIST NEEDED.
--- NOTE | 2018-09-25 13:55 | EKG ---
[place] [address] ELECTROCARDIOGRAM REPORT Name: CHONG MILNER Room: [address] ADM IN .#: [id number] Admission: 09/24/18 Attend Phys: Ashley Reyez Discharge: Date of : 55 Report #: [id number] THIS REPORT FOR: //name// [facility] ED Test Date: 2018-09-23 Test Time: 22:56:39 Pat Name: CHONG MILNER Department: Room: [facility] Gender: F Health Specialist: RHEA : 1955 Requested By: Nasrin Cervantes Order Number: [id number] MD: Robert Leung Measurements Intervals [place] Rate: 107 P: 62 NH: 161 QRS: 21 QRSD: 82 T: 12 QT: 324 QTc: 433 Interpretive Statements Sinus tachycardia Low voltage, precordial leads Compared to ECG 08/07/2018 21:55:16 no change Electronically Signed On 09-25-2018 13:54:58 CDT by Robert Leung [email or web address] <ELECTRONICALLY SIGNED> By: Robert Leung MD, [facility] 09/25/18 1354 2256 2256 Robert Leung MD, [facility] /EPI
--- NOTE | 2018-09-25 15:05 | NUR ---
AM ASSESSMENT AND VITAL SIGNS COMPLETED DOCUMENTED. PT HAS BEEN PLEASANT AND COOPERATIVE WITH STAFF. O2 AT 4L/NC TO MAINTAIN O2 SAT >90%. FC TO DD WITH PALE YELLOW URINE OUTPUT, FUROSEMIDE 40MG IV BID CONTINUES. PT USES THE CALL LIGHT FOR ASSISTANCE. FALL PRECAUTIONS AND HOURLY ROUNDING CONTINUE.
[2018-09-25 16:30] VITALS: BP 116/74
[2018-09-26] VITALS: BP 129/91
[2018-09-26 04:34] LABS: HEMATOCRIT 28.9 % (37.0-47.0); HEMOGLOBIN 9.6 gm/dL (12.0-15.0); MCH 29.3 pg (26.0-34.0); MCHC 33.3 g/dL (28.0-37.0); MCV 87.9 fL (80.0-100.0); RBC 3.29 mil/uL (4.20-5.00); RDW-CV 16.1 % (10.5-14.5); WBC 7.7 thou/uL (4.0-11.0)
[2018-09-26 04:38] LABS: CALCIUM 9.1 mg/dL (8.5-10.1); CREATININE 0.9 mg/dL (0.6-1.3); MAGNESIUM 1.5 mg/dL (1.8-2.4); POTASSIUM 4.4 mmol/L (3.5-5.1)
--- NOTE | 2018-09-26 05:17 | NUR ---
PT SLEPT OFF AND ON OVERNIGHT. REQUESTING FREQUENT PRN MEDS, PAIN, NAUSEA, ANXIETY, MUSCLE RELAXERS-GIVEN ORDERED AND INDICATED. CO NAUSEA BUT DRINKING A LOT OF DIET SODA AND WATER, EATING CRACKERS AND BOX LUNCH. CO GENERALIZED PAIN, MEDS GIVEN. ANXIOUS AND NEEDY OVERNIGHT. 02 3.5L NC. REBOLLAR DRAINING YELLOW URINE. OCC CONGESTED COUGH, RT TX GIVEN. BLE EDEMA, ENCOURAGED PT TO KEEP LEGS ELEVATED. RAC AND R FINGER SLIV. ACCUCHECK 245, INSULIN GIVEN WITH SNACK. AM LABS. ABLE TO USE CALL LITE AND MAKE NEEDS KNOWN.
--- NOTE | 2018-09-26 12:09 | NUR ---
CONTINUE TO FOLLOW, DISCUSSED WITH DR BACON, REC: IS LTC. MET WITH PT, SHE WANTS TO GO TO [facility] [facility], ALTHOUGH SHE IS ASKING TO GO HOME FOR 'A DAY' TO GET THINGS IN ORDER. SUGGESTED TO HER THAT IF LTC ABLE TO ACCEPT HER, SHE SHOULD CONSIDER GOING THERE FROM HOSPITAL, THAT SHE HAS HAD NEAR CONTINUOUS ADMITS TO HOSPITALS OR SNF SINCE MAR 2018. SHE IS AGREEABLE TO GO. ENCOURAGED HER TO CONTACT HER FRIENDS/SUPPORT SYSTEM TO ASSIST HER. CALLED AND FAXED REFERRAL TO [facility], THEY WILL CONSIDER
--- NOTE | 2018-09-26 15:22 | 2DMMODE ---
[place] [address] 2 D/M-MODE ECHOCARDIOGRAM Name: ANNIACHONG L Room: [address] IN [facility]#: [id number] Admission: 09/24/18 Attend Phys: Mikael Haro Discharge: Date of : 55 Date of Service: 09/26/18 1522 Report #: [id number] THIS REPORT FOR: //name// APPROVED REPORT Study performed: 09/26/2018 14:28:15 EXAM: Comprehensive 2D, Doppler, and color-flow Echocardiogram Patient Location: In-Patient Room #: [facility] Status: routine BSA: 1.97 HR: 90 bpm BP: 129/91 mmHg Rhythm: NSR Other Information Study Quality: Good Indications Dyspnea 2D Dimensions IVSd: 10.75 (7-11mm) LVOT Diam: 19.96 (18-24mm) LVDd: 36.26 mm PWd: 10.51 (7-11mm) Ascending Ao: 34.77 (22-36mm) LVDs: 21.51 (25-40mm) Aortic Root: 32.08 mm Volumes Left Atrial Volume (Systole) LA ESV Index: 35.10 mL/m2 Aortic Valve AoV Peak Norberto.: 1.77 m/s AO Peak Gr.: 12.53 mmHg LVOT Max P.17 mmHg AO Mean Gr.: 7.57 mmHg LVOT Mean P.91 mmHg LVOT Max V: 1.67 m/s AO V2 VTI: 31.51 cm LVOT Mean V: 1.13 m/s SHELLY (VTI): 3.32 cm2 LVOT V1 VTI: 33.47 cm Mitral Valve MV Mean Gr.: 6.15 mmHg E/A Ratio: 0.73 MV Decel. Time: 350.82 ms MV E Max Norberto.: 1.15 m/[place] [address] 2 D/M-MODE ECHOCARDIOGRAM Name: CHONG MILNER Room: [address] IN [facility]#: [id number] Admission: 09/24/18 Attend Phys: Mikael Haro Discharge: Date of : 55 Date of Service: 09/26/18 1522 Report #: [id number] MV PHT: 101.74 ms MVA (PHT): 2.16 cm2 TDI E/Lateral E': 11.50 E/Medial E': 14.38 Medial E' Norberto.: 0.08 m/s Lateral E' Norberto.: 0.10 m/s Pulmonary Valve PV Peak Norberto.: 1.53 m/s PV Peak Gr.: 9.37 mmHg Left Ventricle The left ventricle is normal size. There is normal LV segmental wall motion. Mild concentric left ventricular hypertrophy. Left ventricular systolic function is normal. The left ventricular ejection fraction is within the normal range. LVEF is 65-70%. Grade I - abnormal relaxation pattern. Right Ventricle The right ventricle is normal size. The right ventricular systolic function is normal. Atria Left atrium is dilated. The right atrium size is normal. Aortic Valve Mild aortic valve sclerosis. No aortic regurgitation is present. There is no aortic valvular stenosis. Mitral Valve Moderate mitral annular calcification. There is no mitral valve regurgitation noted. mild to moderate mitral valve stenosis. Tricuspid Valve The tricuspid valve is normal in structure. Unable to assess PA pressure. Trace tricuspid regurgitation. Pulmonic Valve The pulmonary valve is normal in structure. There is no pulmonic valvular regurgitation. Great Vessels The aortic root is normal in size. IVC is normal in size and collapses >50% [place] [address] 2 D/M-MODE ECHOCARDIOGRAM Name: CHONG MILNER Room: [address]#: [id number] Admission: 09/24/18 Attend Phys: Mikael Haro Discharge: Date of : 55 Date of Service: 09/26/18 1522 Report #: [id number] Pericardium There is no pericardial effusion. <Conclusion> LVEF is 65-70%. There is normal LV segmental wall motion. Left atrium is dilated. mild to moderate mitral valve stenosis. There is no mitral valve regurgitation noted. There is no aortic valvular stenosis. No aortic regurgitation is present. Moderate mitral annular calcification. Grade I - abnormal relaxation pattern. Mild concentric left ventricular hypertrophy. <ELECTRONICALLY SIGNED> By: Tacos Gary MD, FACC 09/26/18 1522 1522 1522 Tacos Gary MD, FACC /INF
--- NOTE | 2018-09-26 15:40 | NUR ---
ASSESSMENT COMPLETE. PT ANXIOUS MOST OF THE DAY. PT WORRIED ABOUT DC PLANS WITH CASE MANAGEMENT. PT ASKED MULTIPLE TIMES TO INCREASE ATIVAN AND PAIN MEDICATIONS. PT EDUCATED ON MEDICATIONS AND NEEDS. PHYSICIAN NOTIFIED, NO NEW ORDERS. DC REBOLLAR TODAY AND BLADDER SCAN ORDERS. PT ON 4L PER NC, VSS. PT UP ONE ASSIST. PT TURNS SELF IN BED. ACCU CHECK ACHS. PT SITTING UP AT THIS TIME AND HAS NO OTHER CONCERNS. SEE ASSESSMENT AND VITALS FOR OTHER DETAILS. CALL LIGHT WITHIN REACH, WILL CONTINUE PLAN OF CARE
[2018-09-26 16:30] VITALS: BP 141/64
[2018-09-26 20:00] VITALS: BP 119/60
--- NOTE | 2018-09-27 06:04 | NUR ---
PT AWAKE MUCH OF THE NIGHT, SLEEPING FOR SHORT PERIODS OF TIME AFTER ANXIETY MEDS. VERY AGITATED AND FUSSY AT START OF SHIFT, REFUSING REBOLLAR REMOVAL AND DEMANDING MORE LORAZEPAM. "NO LORAZEPAM, NO CATHETER OUT, NO DEAL". DR NOTIFIED AND CLONAZEPAM GIVEN ORDERED. REBOLLAR REMOVED, PT UP WITH ASSIST TO BSC TO VOID, BLADDER SCANNED FOR RESIDUAL ORDERED. INCONT IN BRIEF AND BED AT ONE POINT. THIS AM SCAN SHOWED RETENTION OF 650 AFTER VOID SO STRAIGHT CATH DONE ORDERED. PT APPRECIATIVE AND STILL REQUESTING THAT REBOLLAR BE REINSERTED. "IF I DONT HAVE IT MY LEGS SWELL UP AND I CANT GET MY PEE OUT". WILL CONTINUE TO MONITOR POST VOID RESIDUAL AND NOTIFY DR IF > 500 ORDERED. RAC SL, ZOFRAN GIVEN ONCE FOR CO NAUSEA. PT HAD BOX LUNCH AND SNACK AFTER INSULIN. NEEDY, REQUESTING FREQUENT MEDS IBUPROFEN, ZANAFLEX, BENADRYL, MELATONIN, CLONAZEPAM. CO GENERALIZED PAIN. O2 3L. ACCUCHECK 292, INSULIN GIVEN WITH SNACK. NO LABS THIS MORNING. BLE EDEMA. CM TO ASSIST WITH DC PLAN TO ASSISTED LIVING. CALL LITE IN EASY REACH, BED ALARM ON FOR SAFETY.
[2018-09-27 07:55] VITALS: BP 141/67
--- NOTE | 2018-09-27 12:33 | NUR ---
CONTINUE TO FOLLOW, MET WITH PT, NOT READY FOR DC TODAY. SHE IS STATING SHE WANTS TO GO HOME PRIOR TO LTC NOW. SPOKE WITH [facility] CW/SHIRA AT [phone]. HE STATED THAT HER CW IS HAILY AND THEY HAVE BEEN TALKING WITH PT ABOUT LTC FOR SOME TIME. THEY PLAN TO CONTACT HER AND SHIRA STATED [facility] COULD ASSIST HER WITH GETTING HER 'AFFAIR'S IN ORDER. PT WANTS TO SPEAK WITH TABITHA ROTH FROM [facility], STATED HE SAW HER AT [facility]. CALL TO , THEY STATED THAT PT WAS 'HOTLINED' RE: NEED FOR LTC AND THEY WOULD TRY TO LOCATE TABITHA'S NUMBER. SHANTA FROM [facility] HER TO TALK WITH PT RE: LTC. WILL FOLLOW
[2018-09-27 16:30] VITALS: BP 112/60
--- NOTE | 2018-09-27 17:22 | NUR ---
PATIENT RESTING IN BED. PATIENT HAS BEEN UP TO EDGE OF BED FOR MEALS. PATIENT HAS GOOD APPETITE. REBOLLAR CATHETER REPLACED THIS AM DUE TO RETENTION. PATIENT HAS COMPLAINTS OF GENERALIZED PAIN, TREATED PARTIALLY WITH MEDICATION. PATIENT DENIES ANY NEEDS AT THIS TIME. CALL LIGHT WITHIN REACH. WILL CONTINUE TO MONITOR.
[2018-09-27 21:20] VITALS: BP 127/61
--- NOTE | 2018-09-28 06:08 | NUR ---
PATIENT HAS SLEPT OFF AND ON DURING THE NIGHT WITH PERIODS OF RESTLESSNESS. VSS ON 3L 02 VIA NASAL CANNULA. PATIENT IS UP WITH ASSIST X 1. REBOLLAR TO DEPENDENT DRAINGE WITH YELLOW URINE OUTPUT. MEDICATIONS GIVEN ORDERED AND CHARTED. PATIENT INSTRUCTED TO USE CALL LIGHT WHEN NEEDING ASSISTANCE. HOURLY ROUNDS MADE. WILL CONTINUE WITH PLAN OF CARE AND NURSING TO MONITOR.
[2018-09-28 07:45] VITALS: BP 139/56
--- NOTE | 2018-09-28 10:37 | NUR ---
CONTINUE TO FOLLOW, MET WITH PT WITH DR HOLMAN. PT LEANING TOWARDS GOING HOME. VOICED FRUSTRATION THAT 'EVERYONE KEEPS TELLING ME TO GO TO LTC.' EXPLAINED TO PT THAT SHE HAS HAD MULTIPLE HOSPITAL AND SNF ADMITS SINCE MAR AND HAS BEEN HOME, PT THOUGHT ONLY ABOUT A WEEK. SHE VOICED THAT SHE IS EMOTIONALLY ATTACHED TO HER APT AND WANTS TO GO HOME,QUIT SMOKING, SECURE A PCP AND GET BETTER. PT REPORTS SHE SPOKE WITH HER [facility]ENTAL HEALTH CW/HAILY AND HE IS MAKING HER A PCP APPT SOON. PT PLANS TO MAKE FINAL DECISION ABOUT LTC VS HOME BY TOMORROW. THERAPY TO SEE TODAY
[2018-09-28 16:45] VITALS: BP 120/52
[2018-09-28 17:13] LABS: HEMOGLOBIN 11.5 gm/dL (12.0-15.0); MCH 29.8 pg (26.0-34.0); MCHC 33.8 g/dL (28.0-37.0); MCV 88.2 fL (80.0-100.0); MPV 7.2 fl. (7.2-11.1); NUCLEATED RBCS 0 /100WBC; PLATELET COUNT* 332 thou/uL (150-400); RBC 3.85 mil/uL (4.20-5.00); WBC 7.9 thou/uL (4.0-11.0)
[2018-09-28 17:27] LABS: ALBUMIN 3.4 g/dL (3.4-5.0); CREATININE 1.2 mg/dL (0.6-1.3); POTASSIUM 5.3 mmol/L (3.5-5.1); TOTAL BILIRUBIN 0.3 mg/dL (<0.1-1.0); TOTAL PROTEIN 6.8 g/dL (6.4-8.2)
[2018-09-28 17:43] LABS: ABSOLUTE LYMPHOCYTES 0.6 thou/uL (0.8-5.3); ABSOLUTE MONOCYTES 0.1 thou/uL (0.0-1.2); ABSOLUTE NEUTROPHILS 7.3 thou/uL (1.6-8.1); ANISOCYTOSIS Occasional; PLATELET ESTIMATE ADEQUATE
--- NOTE | 2018-09-28 18:44 | NUR ---
PATIENT RESTING IN BED. PATIENT IS UP WITH ASSIST. PATIENT WORKED WITH THERAPIES THIS AFTERNOON. PATIENT HAS GOOD APPETITE. PATIENT HAS COMPLAINTS OF GENERALIZED PAIN, TREATED ADEQUATELY WITH MEDICATION. PATIENT DENIES ANY NEEDS AT THIS TIME. CALL LIGHT WITHIN REACH. WILL CONTINUE TO MONITOR.
[2018-09-28 20:00] VITALS: BP 110/49
--- NOTE | 2018-09-29 06:38 | NUR ---
Alert and oriented x 4 but forgetful. Vitals are stable. She has been requesting snacks throughout the night. She has rt shoulder pain and back pain, she had extra strength tylenol and ibuprofen for pain. Nystatin cream applied to red,yeasty areas under rt breast and abdominal folds. She has slept intermittenly.
[2018-09-29 07:26] VITALS: BP 135/77
--- NOTE | 2018-09-29 11:00 | NUR ---
Nutrition: RD familiar with pt. Assessed for OBE, class III. Admitted with weakness. H/o DM, HTN, COPD. Usual wt is 220-240#. CHO diet ordered. Pt is adamant about going home, per chart. +BM yday. BG is elevated, 252. K+ 5.3. Has been eating well. No nutrition interventions needed at this time. Low risk.
[2018-09-29 11:58] LABS: CALCIUM 9.1 mg/dL (8.5-10.1); CREATININE 0.8 mg/dL (0.6-1.3); POTASSIUM 4.8 mmol/L (3.5-5.1)
--- NOTE | 2018-09-29 12:25 | NUR ---
CONTINUE TO FOLLOW, PER DR HOLMAN, PT NOT 'FEELING WELL' TODAY, WILL PLAN DC HOME TOMORROW. PT ADMITS TO BEING 'SCARED' TO GO HOME, BUT FEELS SHE HAS TO EMOTIONALLY. SHE DECLINES TO GO TO LTC FROM HOSPITAL. SHE IS AGREEABLE TO PALLIATIVE CARE INFO, SET UP THRU [facility] TO COME OUT FOR INFO VISIT TODAY. SPOKE WITH PT'S CASEWORK AT [facility]. HE IS ARRANGING F/U APPT AT [facility] FOR HER AND WILL TRANSPORT HER TO [facility]. ASKED THAT HE CALL CM BACK WITH APPT. MADE HIM AWARE THAT HH CANNOT BE SET UP UNTIL SHE HAS A PCP, HE UNDERSTOOD. ENCOURAGED PT TO CALL HER SUPPORT SYSTEM TO ASSIST WITH HER CARE AT HOME AND 'MAKING IT WORK'. PT NOW STATING IF IT DOESN'T WORK AT HOME THIS TIME, SHE KNOWS SHE WILL NEED TO GO TO LTC. AWARE THAT [facility] WILL NOT HOLD BED AND SHE MAY NEED TO CONSIDER OTHER FACILITES, GAVE HER A LIST AND NUMBERS OF SOME THAT MAY HAVE LTC MEDICAID BEDS IF NEEDED. ALSO MADE PT AWARE THAT SHE DID NOT NEED TO RETURN TO HOSPITAL IN ORDER TO GO TO LTC. PT WILL NEED W/C [facility] TRANSPORT HOME, DOES HAVE HER OWN O2 TANK IN ROOM. ANTICIPATE DC TOMORROW
--- NOTE | 2018-09-29 15:54 | NUR ---
ASSESSMENT COMPLETE. PT ALERT AND ORIENTED, FORGETFUL AT TIMES. PT PLAN TO DC HOME TOMORROW, SEE CASE MANAGEMENT NOTES. CONSULT FOR PALLIATIVE DONE BY CASE MANAGEMENT. DR HOLMAN DID NOTIFY PATIENT THAT IF SHE DC'S TO HOME HE WILL HOTLINE HER, EDUCATED ON SAFETY REASONS AND CONCERNS. PT IS ON 3L PER NC. VSS. REBOLLAR IN PLACE. BM TODAY. PT IS UP STANDBY ASSIST, TURNS SELF IN BED. TOLERATING MEALS. ACCU CHECK. NYSTATIN CREAM FOR UNDER RIGHT BREAST AND ABDOMINAL FOLD. PT HAS IV IN RIGHT FOREARM, SALINE LOCKED. SEE ASSESSMENT AND VITALS FOR OTHER DETAILS. CALL LIGHT WITHIN REACH, WILL CONTINUE PLAN OF CARE
--- NOTE | 2018-09-29 16:49 | NUR ---
REPORT CALLED TO [facility]
[2018-09-29 16:52] VITALS: BP 138/95
[2018-09-29 19:50] VITALS: BP 132/71
--- NOTE | 2018-09-30 05:44 | NUR ---
PT ALERT AND ORIENTED. VSS ON 3L NC. ASSESSMENT COMPLETED AND DOCUMENTED. PT CALLS OUT EVERYTIME SHE WAKE UP FOR MUSCLE RELAXANT AND PAIN MEDS AND FOOD. SOMETIMES PT IS HALF ASLEEP WHEN SHE CALLS AND FALLS ASLEEP BEFORE YOU GET IN THE ROOM. HOURLY ROUNDINGS MADE CALL LIGHT WITHIN REACH. POSSIBLE DC TODAY. WILL CONTINUE PLAN OF CARE.
--- NOTE | 2018-09-30 15:34 | NUR ---
Following for d/c planning needs. Reviewed chart and spoke with nurse. Notified [facility] that pt is being d/c home today. They will notify nurse and have nurse contact patient at home today. Per previous case management note, pt does not have primary care physician, and cannot have home health arranged until PCP is in place. [facility] case therapist is aware and will follow up with pt. Did call [facility] to verify. No other needs identified. [facility] [phone] [facility] [phone]
[2018-09-30 16:00] VITALS: BP 123/34
--- NOTE | 2018-09-30 19:55 | NUR ---
DISCHARGE HOME, PALLATIVE CARE TO FOLLOW. PATIENT A&OX4, NOTED SOB W/ EXERTION AND CONVERSATION. LS NOTED DIM. O2 3L/NC. PATIENT STATES SHE HAS HOMEMAKER SERVICES THRU [facility]. [facility] TO FOLLOW FOR PALLATIVE CARE. PATIENT PLEASANT AND COOPERATIVE THRU SHIFT. IV CATH SITE DISCONTINUED AT TIME OF DISCHARGE, CATH INTACT, COTTON BALL/TAPE APPLIED TO SITE. EDUCATED ON DISCHARGE AND F/U AFTER CARE, SCRIPTS. PATIENT STATES VERBALLY OF UNDERSTANDING. SCRIPTS GIVEN TO PATIENT, COPY OF INSTRUCTIONS WITH PATIENT. MEDICAL TRANSPORT IN TO RECEIVE PATIENT FOR TRANSFER HOME. SEE CARE MGMT NOTES. PATIENT ESCORTED PER TO [facility] BY SILK TRIMMER W/ RN PRESENT. BELONGINGS PLACED IN PASSENGER SEAT. PATIENT HAS O2 3L/NC ON W/ PERSONAL O2 CONCENTRATOR. REBOLLAR CATH NOTED INTACT, PATENT. NO OTHER NURSING NEEDS VOICED AT THIS TIME. ~TJRN
--- NOTE | 2018-10-03 15:08 | NUR ---
SPOKE WITH FIDE ROTH/ROSA. HE VISITED WITH PT TODAY AND WOULD LIKE TO BE NOTIFIED IF SHE IS READMITTED WITH HOSPITAL HE WILL CONTINUE TO FOLLOW PT AT HOME [phone] FAXED DPOA TO HIM PER REQUEST TO [phone]
== END 2018-09-30 19:55 | disposition home or self-care (01) | DRG 291 ==
LOC: M.ERS 22:38 → M.ORTHSURG 09-24 00:53 → M.TBA-ER 09-24 00:53 → M.ORTHSURG 09-24 13:09
PROVIDERS: Emergency Medicine; Internal Medicine; ADMIT Internal Medicine
DX: I13.0 Hypertensive heart and chronic kidney disease with heart failure and stage 1 through stage 4 chronic kidney disease, or unspecified chronic kidney disease (principal); I50.33 Acute on chronic diastolic (congestive) heart failure; J96.01 Acute respiratory failure with hypoxia; R65.11 Systemic inflammatory response syndrome (SIRS) of non-infectious origin with acute organ dysfunction; E87.1 Hypo-osmolality and hyponatremia; Z68.41 Body mass index [BMI] 40.0-44.9, adult; L03.90 Cellulitis, unspecified; I87.2 Venous insufficiency (chronic) (peripheral); E87.5 Hyperkalemia; E66.01 Morbid (severe) obesity due to excess calories; E78.00 Pure hypercholesterolemia, unspecified; F17.210 Nicotine dependence, cigarettes, uncomplicated; E78.5 Hyperlipidemia, unspecified; F31.9 Bipolar disorder, unspecified; J43.9 Emphysema, unspecified; G47.33 Obstructive sleep apnea (adult) (pediatric); N18.2 Chronic kidney disease, stage 2 (mild); E11.22 Type 2 diabetes mellitus with diabetic chronic kidney disease; F25.9 Schizoaffective disorder, unspecified; Z90.49 Acquired absence of other specified parts of digestive tract; Z90.710 Acquired absence of both cervix and uterus; Z99.81 Dependence on supplemental oxygen; Z86.711 Personal history of pulmonary embolism; Z88.1 Allergy status to other antibiotic agents; Z88.8 Allergy status to other drugs, medicaments and biological substances; Z79.82 Long term (current) use of aspirin; Z79.84 Long term (current) use of oral hypoglycemic drugs

== ENCOUNTER 2018-10-04 14:25 | Emergency (ER) | payer OTHER, MEDICAID ==
[~2018-10-04] VITALS: Ht 152.4 cm; Wt 104.3 kg
[2018-10-04] MEDS ORDERED: ONDANSETRON HCL4 M2 PO (14:33)
[2018-10-04 14:45] LABS: URINE BILIRUBIN NEGATIVE (Negative); URINE BLOOD 3+ (Negative); URINE CLARITY CLEAR; URINE COLOR YELLOW; URINE GLUCOSE-RANDOM 1+ (Negative); URINE KETONES NEGATIVE (Negative); URINE LEUKOCYTES-REFLEX NEGATIVE (Negative); URINE NITRITE-REFLEX NEGATIVE (Negative); URINE PROTEIN 1+ (Negative); URINE SPECIFIC GRAVITY 1.015 (1.005-1.030); URINE UROBILINOGEN 0.2 E.U./dl (0.2-1.0)
[2018-10-04 14:48] LABS: BACTERIA-REFLEX None Seen /HPF (None Seen); CASTS None Seen /LPF (None Seen); SQUAMOUS 0-3 Few /LPF (0-3); URINE RBC >20 Many /HPF (0-2); URINE WBC-REFLEX None Seen /HPF (0-5)
[2018-10-04 14:49] LABS: CRYSTALS None Seen /LPF (None Seen)
[2018-10-04 14:57] LABS: HEMOGLOBIN 11.1 gm/dL (12.0-15.0); MCH 29.7 pg (26.0-34.0); MCHC 33.6 g/dL (28.0-37.0); MCV 88.4 fL (80.0-100.0); MPV 7.1 fl. (7.2-11.1); NUCLEATED RBCS 0 /100WBC; PLATELET COUNT* 310 thou/uL (150-400); RBC 3.73 mil/uL (4.20-5.00); RDW-CV 15.8 % (10.5-14.5); WBC 10.8 thou/uL (4.0-11.0)
[2018-10-04 15:08] LABS: APTT 26.2 Seconds (25.0-31.3); INR 1.1; PROTIME 11.2 Seconds (9.20-11.50)
[2018-10-04 15:13] LABS: CALCIUM 8.6 mg/dL (8.5-10.1); POTASSIUM 5.6 mmol/L (3.5-5.1)
[2018-10-04 15:21] LABS: ALBUMIN 3.4 g/dL (3.4-5.0); TOTAL BILIRUBIN 0.2 mg/dL (<0.1-1.0); TOTAL PROTEIN 6.5 g/dL (6.4-8.2)
[2018-10-04 15:38] LABS: ABSOLUTE LYMPHOCYTES 1.2 thou/uL (0.8-5.3); ABSOLUTE MONOCYTES 0.6 thou/uL (0.0-1.2); ATYPICAL LYMPHS 5 %; PLATELET ESTIMATE ADEQUATE
[2018-10-04 16:53] VITALS: BP 150/87
--- NOTE | 2018-10-05 14:00 | EKG ---
[place] [address] ELECTROCARDIOGRAM REPORT Name: CHONG MILNER Room: [facility]#: [id number] Admission: 10/04/18 Attend Phys: Discharge: 10/04/18 Date of : 55 Report #: [id number] THIS REPORT FOR: //name// [facility] ED Test Date: 2018-10-04 Test Time: 14:53:30 Pat Name: CHONG MILNER Department: Room: Gender: F Junior Media Buyer: CCD : 1955 Requested By: Lei Parada Order Number: [id number] : Phillip Zimmerman Measurements Intervals [place] Rate: 93 P: 63 FL: 149 QRS: 8 QRSD: 83 T: 18 QT: 347 QTc: 432 Interpretive Statements Sinus rhythm Compared to ECG 09/23/2018 22:56:39 Sinus tachycardia no longer present Electronically Signed On 10-05-2018 14:00:06 CDT by Phillip Zimmerman [email or web address] <ELECTRONICALLY SIGNED> By: Phillip Zimmerman MD, [facility] 10/05/18 1400 1453 1453 Phillip Zimmerman MD, FACC /EPI
== END 2018-10-04 16:56 | disposition home or self-care (01) ==
LOC: M.ERS 14:25
PROVIDERS: Family Medicine
DX: T83.038A Leakage of other urinary catheter, initial encounter (principal); I13.0 Hypertensive heart and chronic kidney disease with heart failure and stage 1 through stage 4 chronic kidney disease, or unspecified chronic kidney disease; I50.9 Heart failure, unspecified; E11.22 Type 2 diabetes mellitus with diabetic chronic kidney disease; N18.9 Chronic kidney disease, unspecified; J44.9 Chronic obstructive pulmonary disease, unspecified; I26.99 Other pulmonary embolism without acute cor pulmonale; G47.33 Obstructive sleep apnea (adult) (pediatric); E78.00 Pure hypercholesterolemia, unspecified; F20.9 Schizophrenia, unspecified; F31.9 Bipolar disorder, unspecified; F17.210 Nicotine dependence, cigarettes, uncomplicated; Z88.1 Allergy status to other antibiotic agents; Z86.711 Personal history of pulmonary embolism; Z88.8 Allergy status to other drugs, medicaments and biological substances; Z90.89 Acquired absence of other organs; Z90.710 Acquired absence of both cervix and uterus; Z98.890 Other specified postprocedural states; Y84.8 Other medical procedures as the cause of abnormal reaction of the patient, or of later complication, without mention of misadventure at the time of the procedure; Y92.89 Other specified places as the place of occurrence of the external cause